=== PATIENT | female | born 1960 | race Caucasian/White ===

== ENCOUNTER 2023-04-14 11:11 | Inpatient (IN) | payer OTHER ==
[~2023-04-14] VITALS: Ht 162.6 cm; Wt 40.8 kg
[2023-04-14] VITALS (10 sets, daily range): BP systolic 81–117; BP diastolic 55–82; TEMP 98.3; O2SAT 73–100
[2023-04-14] MEDS ORDERED: PIPERACILLIN /TAZOBACTAM 3.375 G in IV D5W 50 ML IV ONE (11:30)
[2023-04-14] MEDS ORDERED: VANCOMYCIN 1 GM in IV D5W 250 ML IV ONE (11:30)
[2023-04-14] MEDS ORDERED: IV LR 1000 ML 1,000 ML BAG IV ONE (11:30)
[2023-04-14] MEDS ORDERED: OMEP20CA15 GT (12:05)
[2023-04-14] MEDS ORDERED: POVI3780 TP (12:05)
[2023-04-14] MEDS ORDERED: MULT-213 GT (12:05)
[2023-04-14] MEDS ORDERED: LIDO30AD10 TD (12:05)
[2023-04-14] MEDS ORDERED: MAGN400O6 GT (12:05)
[2023-04-14] MEDS ORDERED: ASPI-1169 GT (12:05)
[2023-04-14] MEDS ORDERED: ZOLP5TAB2 GT (12:05)
[2023-04-14] MEDS ORDERED: GUAI100S9 GT (12:05)
[2023-04-14] MEDS ORDERED: ALBU8.5H8 IH (12:05)
[2023-04-14] MEDS ORDERED: ACET-2605 GT (12:05)
[2023-04-14] MEDS ORDERED: NA P133E RC (12:05)
[2023-04-14] MEDS ORDERED: IPRA12.9 IH (12:05)
[2023-04-14] MEDS ORDERED: CHOL200059 GT (12:05)
[2023-04-14] MEDS ORDERED: ATOR80TA GT (12:05)
[2023-04-14] MEDS ORDERED: ZINC220T3 GT (12:05)
[2023-04-14] MEDS ORDERED: PRUC2TAB GT (12:05)
[2023-04-14] MEDS ORDERED: SIME80TA15 GT (12:05)
[2023-04-14] MEDS ORDERED: MAGN400T26 GT (12:05)
[2023-04-14] MEDS ORDERED: BISA10SU11 RC (12:05)
[2023-04-14] MEDS ORDERED: ACET-3511 GT (12:05)
[2023-04-14] MEDS ORDERED: NUTR150016 PO (12:05)
[2023-04-14] MEDS ORDERED: SENN-261 GT (12:05)
[2023-04-14] MEDS ORDERED: SILD50TA53 GT (12:05)
[2023-04-14] MEDS ORDERED: HYDR200T4 GT (12:05)
[2023-04-14] MEDS ORDERED: POLY17PO4 GT (12:05)
[2023-04-14] MEDS ORDERED: CHLO473M5 MM (12:05)
[2023-04-14] MEDS ORDERED: ONDA4TAB5 GT (12:05)
[2023-04-14] MEDS ORDERED: TRAM50TA2 GT (12:05)
[2023-04-14] MEDS ORDERED: DOCU100T2 GT (12:05)
[2023-04-14] MEDS ORDERED: SODI473S9 TP (12:05)
[2023-04-14 12:12] LABS: APPEARANCE,URINE CLEAR (CLEAR); BILIRUBIN,URINE NEGATIVE (NEGATIVE); BLOOD, URINE TRACE-INTA Ery/uL (NEGATIVE); COLOR,URINE YELLOW (YELLOW); KETONES,URINE TRACE mg/dL (NEGATIVE); LEUKOCYTE ESTERASE ,URINE 1+ (NEGATIVE); NITRITE, URINE NEGATIVE (NEGATIVE); PROTEIN,URINE 1+ mg/dl (NEGATIVE); UGLUCOSE NEGATIVE (NEGATIVE); UROBILINOGEN,URINE 0.2 EU/dL (0.2)
[2023-04-14 12:17] LABS: ADD URINE CULTURE YES; BACTERIA,URINE Rare /HPF (None Seen); RBC,URINE 0-2 /HPF (0-2); SQUAMOUS EPITHELIAL CELL,UR Few /HPF (None Seen)
[2023-04-14 12:36] LABS: BASOPHILS % (AUTO) 0.1 % (0.0-2.0); HEMATOCRIT 22 % (33-45); LYMPHOCYTES # (AUTO) 0.6 K/uL (0.8-4.8); LYMPHOCYTES % (AUTO) 3.4 % (20.0-44.0); MEAN CORPUSCULAR HEMOGLOBIN 30 PG (26.0-33.0); MEAN CORPUSCULAR HGB CONC 31 g/dl (31.0-36.0); MEAN CORPUSCULAR VOLUME 96 fL (82-100); MONOCYTES # (AUTO) 0.9 K/uL (0.1-1.30); MONOCYTES % (AUTO) 5.2 % (2.0-12.0); NEUTROPHILS # (AUTO) 15.6 K/uL (1.8-8.9); NEUTROPHILS % (AUTO) 91.3 % (43.0-81.0); PLATELET COUNT (AUTO) 500 K/uL (150-450); RED BLOOD CELL COUNT(AUTO) 2.27 MIL/uL (4.0-5.2); RED CELL DISTRIBUTION WIDTH 18.9 % (11.5-15.0); WHITE BLOOD COUNT (AUTO) 17.2 K/uL (4.3-11.0)
[2023-04-14 12:38] LABS: HEMOGLOBIN 6.7 g/dL (11.5-14.8)
[2023-04-14 12:44] LABS: CALCIUM, SERUM 8.2 mg/dL (8.5-10.1); CARBON DIOXIDE 20 mmol/L (21-32); CHLORIDE 90 mmol/L (98-107); CREATININE 0.4 mg/dL (0.6-1.3); GLUCOSE 84 mg/dL (74-106); POTASSIUM 4.7 mmol/L (3.5-5.1); SODIUM SERUM 125 mmol/L (136-145); UREA NITROGEN, BLOOD 30 mg/dL (7-18)
[2023-04-14 12:50] LABS: ALANINE AMINOTRANSFERASE 22 U/L (12-78); ALBUMIN 2.2 g/dL (3.4-5.0); ALKALINE PHOSPHATASE 73 U/L (46-116); ASPARTATE AMINOTRANSFERASE 28 U/L (15-37); BILIRUBIN,DIRECT 0.1 mg/dL (0.0-0.2); BILIRUBIN,TOTAL 0.2 mg/dL (0.2-1.0); TOTAL PROTEIN, SERUM 5.4 g/dL (6.4-8.2)
[2023-04-14 12:53] LABS: INR 1.14 (0.91-1.10); PARTIAL THROMBOPLASTIN TIME 25.9 SEC (24.3-34.3); PROTHROMBIN TIME 11.9 SECS (9.2-11.1)
[2023-04-14 13:03] LABS: LACTIC ACID 5.5 mmol/L (0.4-2.0)
[2023-04-14 13:13] LABS: BASOPHILS % (MANUAL) 0 % (0.0-2.0); EOSINOPHILS % (MANUAL) 0 % (0-4); LYMPHOCYTES % (MANUAL) 5 % (16-48); MONOCYTES % (MANUAL) 9 % (0-11.0); NEUTROPHILS % (MANUAL) 86 (42-76); PLATELET ESTIMATE ADEQUATE
[2023-04-14 13:14] LABS: ANISOCYTOSIS 1+
[2023-04-14 13:30] LABS: PEEP,VBG 5 cm H2O; SITE, VBG Right Radial; VBG BASE EXCESS -3.1 mmol/L (-3-3); VBG COHb 0.3 %; VBG OXYGEN SATURATION 54.7 %; VBG PCO2 39.8 mmHg (40-52); VBG PH 7.361 (7.31-7.41); VBG PO2 31.1 mmHg (30-50); VBG TOTAL HEMOGLOBIN 6.4 G/dL (12.0-16.0); VT, VBG 325 mL
[2023-04-14] MEDS ORDERED: IV LR 1000 ML 1,000 ML IV ONE (13:30)
[2023-04-14] MEDS ORDERED: NA PHOS,M-B/NA PHOS,DI-BA 1 EA ENEMA RC PRN (15:30)
[2023-04-14] MEDS ORDERED: ONDANSETRON HCL/PF 4 MG/2 ML VIAL IVP PRN (15:30)
[2023-04-14] MEDS ORDERED: IOHEXOL-300 100 ML VIAL IV ONE (15:48)
[2023-04-14] MEDS ORDERED: IV NS 0.9% 250 ML IV ONE (15:50)
[2023-04-14] MEDS ORDERED: NOREPINEPHRINE 8 MG in IV NS 0.9% 242 ML IV PRN (16:30)
[2023-04-14] MEDS: DOCUSATE SODIUM LIQ 100 MG/10 ML UDC GT SCH (17:00)
[2023-04-14] MEDS: SIMETHICONE 80 MG TAB.CHEW GT SCH ×2 (17:41→21:00)
[2023-04-14] MEDS ORDERED: Medication Not On Formulary EA (Prucalopride Succinate (Motegrity) 2 MG) GT SCH (18:00)
[2023-04-14] MEDS: IV NS 0.9% 1,000 ML IV PRN (18:18)
[2023-04-14 18:41] LABS: ABG BASE EXCESS -2.6 mmol/L; ABG OXYGEN SATURATION 63.8 % (92.0-98.5); ABG PH 7.426 (7.350-7.450); ABG PO2 31.3 mmHg (75.0-100.0); AaDO2 648.7 mmHg; COHb 0.2 % (0.5-1.5); MetHb 0.2 % (0.0-1.5); O2Hb 63.5 % (94.0-97.0); PEEP,BG 5 cm H2O; SITE, ABG Right Radial; VT, ABG 325 mL
[2023-04-14] MEDS: NOREPINEPHRINE 8 MG in IV NS 0.9% 242 ML IV PRN (18:46)
[2023-04-14] MEDS: METOCLOPRAMIDE HCL 10 MG/2 ML VIAL IV SCH ×2 (18:49→23:13)
[2023-04-14 21:13] LABS: ABG BASE EXCESS 1.8 mmol/L; ABG OXYGEN SATURATION 99.4 % (92.0-98.5); ABG PCO2 30.2 mmHg (35.0-45.0); ABG PH 7.522 (7.350-7.450); ABG PO2 538.6 mmHg (75.0-100.0); ABG TOTAL HEMOGLOBIN 10.2 G/dL (12.0-16.0); AaDO2 144.2 mmHg; COHb 0.3 % (0.5-1.5); MetHb 0.3 % (0.0-1.5); O2Hb 98.8 % (94.0-97.0); PEEP,BG 8 cm H2O; SITE, ABG Left Brachial
[2023-04-14] MEDS: ATORVASTATIN 40 MG TABLET GT SCH (21:35)
[2023-04-14] MEDS: CEFEPIME 2 GM in IV D5W 100 ML IV SCH (21:36)
[2023-04-14] MEDS: CHLORHEXIDINE GLUCONATE 15 ML UDC MM SCH (21:36)
[2023-04-14] MEDS: VANCOMYCIN 500 MG in IV D5W 100ml IV SCH (23:13)
[2023-04-15] VITALS (44 sets, daily range): BP systolic 94–126; BP diastolic 61–98; TEMP 96.5–98.2; O2SAT 93–100
[2023-04-15] MEDS: Z GUARD REMEDY 4 OZ OINT TP PRN (02:02)
[2023-04-15 05:46] LABS: BASOPHILS % (AUTO) 0.1 % (0.0-2.0); HEMATOCRIT 26 % (33-45); HEMOGLOBIN 8.7 g/dL (11.5-14.8); LYMPHOCYTES # (AUTO) 0.6 K/uL (0.8-4.8); LYMPHOCYTES % (AUTO) 5.1 % (20.0-44.0); MEAN CORPUSCULAR HEMOGLOBIN 31 PG (26.0-33.0); MEAN CORPUSCULAR HGB CONC 34 g/dl (31.0-36.0); MEAN CORPUSCULAR VOLUME 91 fL (82-100); MONOCYTES # (AUTO) 0.5 K/uL (0.1-1.30); MONOCYTES % (AUTO) 4.2 % (2.0-12.0); NEUTROPHILS % (AUTO) 90.6 % (43.0-81.0); PLATELET COUNT (AUTO) 500 K/uL (150-450); RED BLOOD CELL COUNT(AUTO) 2.83 MIL/uL (4.0-5.2); WHITE BLOOD COUNT (AUTO) 12.1 K/uL (4.3-11.0)
[2023-04-15] MEDS: METOCLOPRAMIDE HCL 10 MG/2 ML VIAL IV SCH ×3 (06:21→18:16)
[2023-04-15] MEDS: CEFEPIME 2 GM in IV D5W 100 ML IV SCH ×3 (06:21→21:00)
[2023-04-15] MEDS: IV NS 0.9% 1,000 ML IV PRN (06:23)
[2023-04-15 06:28] LABS: THYROID STIMULATING HORMONE 2.164 uIU/mL (0.358-3.74)
[2023-04-15 06:39] LABS: CREATININE 0.2 mg/dL (0.6-1.3); MAGNESIUM 1.8 mg/dL (1.8-2.4); PHOSPHORUS 3.6 mg/dL (2.5-4.9); POTASSIUM 3.3 mmol/L (3.5-5.1)
[2023-04-15 08:05] LABS: ABG BASE EXCESS 1.5 mmol/L; ABG OXYGEN SATURATION 98.6 % (92.0-98.5); ABG PCO2 35.4 mmHg (35.0-45.0); ABG PH 7.468 (7.350-7.450); ABG TOTAL HEMOGLOBIN 10.2 G/dL (12.0-16.0); AaDO2 96.5 mmHg; COHb 0.3 % (0.5-1.5); MetHb 0.4 % (0.0-1.5); O2Hb 97.9 % (94.0-97.0); PEEP,BG 5 cm H2O; SITE, ABG Left Brachial; VT, ABG 375 mL
[2023-04-15] MEDS: POTASSIUM CL. PREMIX PERIPHER. 50 ML IV SCH ×4 (08:21→12:28)
[2023-04-15] MEDS: SIMETHICONE 80 MG TAB.CHEW GT SCH ×4 (08:21→21:00)
[2023-04-15] MEDS: POLYETHYLENE GLYCOL 3350 17 GM POWD.PACK GT SCH (08:21)
[2023-04-15] MEDS: MULTIVIT W/MINERALS 1 TAB TABLET GT SCH (08:21)
[2023-04-15] MEDS: HYDROXYCHLOROQUINE 200 MG TABLET GT SCH (08:21)
[2023-04-15] MEDS: CHLORHEXIDINE GLUCONATE 15 ML UDC MM SCH ×2 (08:22→21:00)
[2023-04-15] MEDS: ZINC SULFATE 220 MG CAPSULE GT SCH (08:22)
[2023-04-15] MEDS: CHOLECALCIFEROL 1,000 UNIT TABLET (VIT D3) GT SCH (08:22)
[2023-04-15] MEDS: DOCUSATE SODIUM LIQ 100 MG/10 ML UDC GT SCH ×2 (08:22→17:00)
[2023-04-15] MEDS: PANTOPRAZOLE 40 MG/PACK PACK GT SCH (08:22)
[2023-04-15] MEDS: THERAHONEY GEL 1.5 OZ TUBE TP SCH (09:08)
[2023-04-15] MEDS ORDERED: DIATR MEGLU/DIATRIZOATE SODIUM 30 ML BOTTLE (GASTROGRAPHIN) ONE (09:59)
[2023-04-15] MEDS ORDERED: DIATR MEGLU/DIATRIZOATE SODIUM 120 ML BOTTLE (GASTROGRAPHIN) ONE (09:59)
[2023-04-15] MEDS: NOREPINEPHRINE 8 MG in IV NS 0.9% 242 ML IV PRN (12:32)
[2023-04-15] MEDS: VANCOMYCIN 500 MG in IV D5W 100ml IV SCH ×2 (13:58→23:30)
[2023-04-15] MEDS ORDERED: NOREPINEPHRINE 8 MG in IV NS 0.9% 242 ML IV PRN (19:30)
[2023-04-15] MEDS ORDERED: IV NS 0.9% 250 ML IV ONE ×3 (19:30)
[2023-04-15] MEDS: ZOLPIDEM TARTRATE 5 MG TABLET GT SCH (21:00)
[2023-04-15] MEDS: ATORVASTATIN 40 MG TABLET GT SCH (21:01)
[2023-04-15] MEDS: DAKINS QUARTER STRENGTH (0.125%) 480 ML BOTTLE TOP SCH (22:00)
[2023-04-15 22:09] LABS: HIV-1 p24 ANTIGEN NON REACTIVE (NONREACTIVE); HIV-1/2 ANTIBODY NON REACTIVE (NONREACTIVE)
[2023-04-15] MEDS: ACETAMINOPHEN 650 MG/20.3 ML UDC GT PRN (23:30)
[2023-04-16] VITALS (20 sets, daily range): BP systolic 88–117; BP diastolic 59–80; TEMP 97.4–97.9; O2SAT 96–100
[2023-04-16] MEDS: IV NS 0.9% 1,000 ML IV PRN ×2 (02:50→19:28)
[2023-04-16 04:34] LABS: BASOPHILS % (AUTO) 0.2 % (0.0-2.0); HEMATOCRIT 24 % (33-45); HEMOGLOBIN 8.1 g/dL (11.5-14.8); LYMPHOCYTES # (AUTO) 0.7 K/uL (0.8-4.8); LYMPHOCYTES % (AUTO) 9.4 % (20.0-44.0); MEAN CORPUSCULAR HEMOGLOBIN 31 PG (26.0-33.0); MEAN CORPUSCULAR HGB CONC 33 g/dl (31.0-36.0); MEAN CORPUSCULAR VOLUME 91 fL (82-100); MONOCYTES # (AUTO) 0.7 K/uL (0.1-1.30); MONOCYTES % (AUTO) 9.3 % (2.0-12.0); NEUTROPHILS # (AUTO) 5.9 K/uL (1.8-8.9); NEUTROPHILS % (AUTO) 81.1 % (43.0-81.0); PLATELET COUNT (AUTO) 384 K/uL (150-450); RED BLOOD CELL COUNT(AUTO) 2.65 MIL/uL (4.0-5.2); RED CELL DISTRIBUTION WIDTH 16.4 % (11.5-15.0); WHITE BLOOD COUNT (AUTO) 7.3 K/uL (4.3-11.0)
[2023-04-16 04:50] LABS: CALCIUM, SERUM 7.9 mg/dL (8.5-10.1); CREATININE 0.2 mg/dL (0.6-1.3); POTASSIUM 3.4 mmol/L (3.5-5.1)
[2023-04-16] MEDS: METOCLOPRAMIDE HCL 10 MG/2 ML VIAL IV SCH ×4 (05:00→17:03)
[2023-04-16] MEDS: CEFEPIME 2 GM in IV D5W 100 ML IV SCH ×3 (05:00→21:46)
[2023-04-16 05:04] LABS: BAND % (MANUAL) 1 % (0.0-5.0); LYMPHOCYTES % (MANUAL) 4 % (16-48); MONOCYTES % (MANUAL) 4 % (0-11.0); NEUTROPHILS % (MANUAL) 91 (42-76)
[2023-04-16 05:05] LABS: ANISOCYTOSIS 1+; OVALOCYTES 1+; PLATELET ESTIMATE ADEQUATE
[2023-04-16] MEDS: PANTOPRAZOLE 40 MG/PACK PACK GT SCH (07:58)
[2023-04-16] MEDS: SIMETHICONE 80 MG TAB.CHEW GT SCH ×4 (08:08→21:46)
[2023-04-16] MEDS: OSMOLITE 1.2 CAL 1,000 ML LIQUID GT PRN (08:13)
[2023-04-16] MEDS: POLYETHYLENE GLYCOL 3350 17 GM POWD.PACK GT SCH (08:13)
[2023-04-16] MEDS: DOCUSATE SODIUM LIQ 100 MG/10 ML UDC GT SCH ×2 (08:13→17:00)
[2023-04-16] MEDS: HYDROXYCHLOROQUINE 200 MG TABLET GT SCH (08:21)
[2023-04-16] MEDS: ZINC SULFATE 220 MG CAPSULE GT SCH (08:21)
[2023-04-16] MEDS: MULTIVIT W/MINERALS 1 TAB TABLET GT SCH (08:21)
[2023-04-16] MEDS: CHOLECALCIFEROL 1,000 UNIT TABLET (VIT D3) GT SCH (08:21)
[2023-04-16] MEDS: THERAHONEY GEL 1.5 OZ TUBE TP SCH (08:22)
[2023-04-16] MEDS: DAKINS QUARTER STRENGTH (0.125%) 480 ML BOTTLE TOP SCH (08:22)
[2023-04-16] MEDS ORDERED: POTASSIUM CHLORIDE 20 MEQ POWDER PACKET GT ONE (09:00)
[2023-04-16] MEDS: CHLORHEXIDINE GLUCONATE 15 ML UDC MM SCH ×2 (09:00→21:46)
[2023-04-16] MEDS: VANCOMYCIN 500 MG in IV D5W 100ml IV SCH (12:50)
[2023-04-16] MEDS ORDERED: SILVER NITRATE APPLICATOR 1 EA BOX TP SCH (14:30)
[2023-04-16] MEDS ORDERED: LIDOCAINE 1%-EPI 1:100,000 20 ML VIAL TP ONE (14:30)
[2023-04-16] MEDS ORDERED: SIMETHICONE 80 MG TAB.CHEW ONE (21:33)
[2023-04-16] MEDS: ATORVASTATIN 40 MG TABLET GT SCH (21:45)
[2023-04-17] VITALS: BP 106/74; TEMP 98; O2SAT 96
[2023-04-17] MEDS: VANCOMYCIN 500 MG in IV D5W 100ml IV SCH ×3 (00:28→23:30)
[2023-04-17] MEDS: METOCLOPRAMIDE HCL 10 MG/2 ML VIAL IV SCH ×4 (00:28→17:13)
[2023-04-17 04:00] VITALS: BP 99/63; TEMP 97.8; O2SAT 96
[2023-04-17] MEDS: CEFEPIME 2 GM in IV D5W 100 ML IV SCH ×3 (05:27→21:45)
[2023-04-17] MEDS: ACETAMINOPHEN 650 MG/20.3 ML UDC GT PRN ×3 (05:30→21:45)
[2023-04-17 08:00] VITALS: BP 130/85; TEMP 97; O2SAT 97
[2023-04-17] MEDS: PANTOPRAZOLE 40 MG/PACK PACK GT SCH (08:43)
[2023-04-17] MEDS: DOCUSATE SODIUM LIQ 100 MG/10 ML UDC GT SCH ×2 (09:00→16:50)
[2023-04-17] MEDS: POLYETHYLENE GLYCOL 3350 17 GM POWD.PACK GT SCH (09:00)
[2023-04-17 09:58] LABS: BASOPHILS % (AUTO) 0.1 % (0.0-2.0); EOSINOPHILS % (AUTO) 0.1 % (0.0-6.0); HEMATOCRIT 26 % (33-45); HEMOGLOBIN 8.5 g/dL (11.5-14.8); LYMPHOCYTES # (AUTO) 0.8 K/uL (0.8-4.8); LYMPHOCYTES % (AUTO) 7.9 % (20.0-44.0); MEAN CORPUSCULAR HEMOGLOBIN 31 PG (26.0-33.0); MEAN CORPUSCULAR HGB CONC 33 g/dl (31.0-36.0); MEAN CORPUSCULAR VOLUME 93 fL (82-100); MONOCYTES # (AUTO) 0.6 K/uL (0.1-1.30); MONOCYTES % (AUTO) 6.7 % (2.0-12.0); NEUTROPHILS # (AUTO) 8.2 K/uL (1.8-8.9); NEUTROPHILS % (AUTO) 85.2 % (43.0-81.0); PLATELET COUNT (AUTO) 365 K/uL (150-450); WHITE BLOOD COUNT (AUTO) 9.6 K/uL (4.3-11.0)
[2023-04-17] MEDS: CHLORHEXIDINE GLUCONATE 15 ML UDC MM SCH ×2 (10:02→21:45)
[2023-04-17] MEDS: MULTIVIT W/MINERALS 1 TAB TABLET GT SCH (10:02)
[2023-04-17] MEDS: ZINC SULFATE 220 MG CAPSULE GT SCH (10:02)
[2023-04-17] MEDS: CHOLECALCIFEROL 1,000 UNIT TABLET (VIT D3) GT SCH (10:02)
[2023-04-17] MEDS: HYDROXYCHLOROQUINE 200 MG TABLET GT SCH (10:03)
[2023-04-17 10:26] LABS: CALCIUM, SERUM 7.4 mg/dL (8.5-10.1); CREATININE 0.3 mg/dL (0.6-1.3); MAGNESIUM 1.4 mg/dL (1.8-2.4); PHOSPHORUS 2.9 mg/dL (2.5-4.9)
[2023-04-17] MEDS: SIMETHICONE 80 MG TAB.CHEW GT SCH ×4 (10:46→21:44)
[2023-04-17] MEDS: MUPIROCIN OINT 2% 22 GM TUBE NS SCH ×2 (10:47→21:46)
[2023-04-17] MEDS: DAKINS QUARTER STRENGTH (0.125%) 480 ML BOTTLE TOP SCH (11:07)
[2023-04-17] MEDS: THERAHONEY GEL 1.5 OZ TUBE TP SCH (11:07)
[2023-04-17] MEDS: Z GUARD REMEDY 4 OZ OINT TP PRN (11:07)
[2023-04-17 12:00] VITALS: BP 100/62; TEMP 97.1; O2SAT 100
[2023-04-17 16:00] VITALS: BP 121/85; TEMP 98.7; O2SAT 100
[2023-04-17] MEDS: IV NS 0.9% 1,000 ML IV PRN (17:07)
[2023-04-17 20:00] VITALS: BP 94/64; TEMP 98.2; O2SAT 100
[2023-04-17] MEDS: ATORVASTATIN 40 MG TABLET GT SCH (21:44)
[2023-04-17] MEDS: ZOLPIDEM TARTRATE 5 MG TABLET GT SCH (22:10)
[2023-04-18] VITALS: BP 101/75; TEMP 98; O2SAT 99
[2023-04-18] MEDS: METOCLOPRAMIDE HCL 10 MG/2 ML VIAL IV SCH ×5 (00:37→23:46)
[2023-04-18 04:00] VITALS: BP 99/81; TEMP 98.1; O2SAT 95
[2023-04-18] MEDS: CEFEPIME 2 GM in IV D5W 100 ML IV SCH ×2 (04:19→16:17)
[2023-04-18] MEDS: ACETAMINOPHEN 650 MG/20.3 ML UDC GT PRN ×2 (04:20→23:46)
[2023-04-18] MEDS: OSMOLITE 1.2 CAL 1,000 ML LIQUID GT PRN (06:30)
[2023-04-18] MEDS: PANTOPRAZOLE 40 MG/PACK PACK GT SCH (07:40)
[2023-04-18 07:59] LABS: CALCIUM, SERUM 7.2 mg/dL (8.5-10.1); CREATININE 0.3 mg/dL (0.6-1.3); POTASSIUM 3.4 mmol/L (3.5-5.1)
[2023-04-18 08:00] VITALS: BP 113/72; TEMP 98.4; O2SAT 95
[2023-04-18 08:04] LABS: BASOPHILS % (AUTO) 0.4 % (0.0-2.0); EOSINOPHILS % (AUTO) 0.1 % (0.0-6.0); HEMATOCRIT 26 % (33-45); HEMOGLOBIN 8.5 g/dL (11.5-14.8); LYMPHOCYTES # (AUTO) 0.8 K/uL (0.8-4.8); LYMPHOCYTES % (AUTO) 11.7 % (20.0-44.0); MEAN CORPUSCULAR HEMOGLOBIN 31 PG (26.0-33.0); MEAN CORPUSCULAR HGB CONC 33 g/dl (31.0-36.0); MEAN CORPUSCULAR VOLUME 93 fL (82-100); MONOCYTES # (AUTO) 0.6 K/uL (0.1-1.30); MONOCYTES % (AUTO) 9.1 % (2.0-12.0); NEUTROPHILS # (AUTO) 5.6 K/uL (1.8-8.9); NEUTROPHILS % (AUTO) 78.7 % (43.0-81.0); PLATELET COUNT (AUTO) 349 K/uL (150-450); RED BLOOD CELL COUNT(AUTO) 2.77 MIL/uL (4.0-5.2); RED CELL DISTRIBUTION WIDTH 15.7 % (11.5-15.0); WHITE BLOOD COUNT (AUTO) 7.1 K/uL (4.3-11.0)
[2023-04-18] MEDS: DOCUSATE SODIUM LIQ 100 MG/10 ML UDC GT SCH ×2 (08:22→16:17)
[2023-04-18] MEDS: CHLORHEXIDINE GLUCONATE 15 ML UDC MM SCH ×2 (08:22→21:16)
[2023-04-18] MEDS: ZINC SULFATE 220 MG CAPSULE GT SCH (08:23)
[2023-04-18] MEDS: POLYETHYLENE GLYCOL 3350 17 GM POWD.PACK GT SCH (08:23)
[2023-04-18] MEDS: CHOLECALCIFEROL 1,000 UNIT TABLET (VIT D3) GT SCH (08:23)
[2023-04-18] MEDS: MULTIVIT W/MINERALS 1 TAB TABLET GT SCH (08:23)
[2023-04-18] MEDS: SIMETHICONE 80 MG TAB.CHEW GT SCH ×4 (08:26→21:17)
[2023-04-18] MEDS: HYDROXYCHLOROQUINE 200 MG TABLET GT SCH (08:26)
[2023-04-18] MEDS: THERAHONEY GEL 1.5 OZ TUBE TP SCH (08:33)
[2023-04-18] MEDS: DAKINS QUARTER STRENGTH (0.125%) 480 ML BOTTLE TOP SCH (08:33)
[2023-04-18] MEDS: MUPIROCIN OINT 2% 22 GM TUBE NS SCH ×2 (08:35→21:57)
[2023-04-18] MEDS: IV NS 0.9% 1,000 ML IV PRN (09:45)
[2023-04-18] MEDS: VANCOMYCIN 500 MG in IV D5W 100ml IV SCH (09:55)
[2023-04-18] MEDS ORDERED: POTASSIUM CHLORIDE 20 MEQ POWDER PACKET GT ONE (11:00)
[2023-04-18 12:00] VITALS: BP 109/65; TEMP 98.3; O2SAT 95
[2023-04-18 16:00] VITALS: BP 108/68; TEMP 98.1; O2SAT 95
[2023-04-18 20:00] VITALS: BP 103/65; TEMP 97.8; O2SAT 95
[2023-04-18] MEDS: ATORVASTATIN 40 MG TABLET GT SCH (21:16)
[2023-04-18] MEDS: ZOLPIDEM TARTRATE 5 MG TABLET GT SCH (23:47)
[2023-04-19] VITALS: BP 123/73; TEMP 97.7; O2SAT 98
[2023-04-19] MEDS: IV NS 0.9% 1,000 ML IV PRN ×2 (02:05→04:51)
[2023-04-19 03:30] VITALS: BP 100/48; TEMP 97.6; O2SAT 94
[2023-04-19] MEDS: OSMOLITE 1.2 CAL 1,000 ML LIQUID GT PRN (04:42)
[2023-04-19] MEDS: CEFEPIME 2 GM in IV D5W 100 ML IV SCH ×3 (04:57→21:01)
[2023-04-19] MEDS: VANCOMYCIN 500 MG in IV D5W 100ml IV SCH ×2 (05:04→23:03)
[2023-04-19] MEDS: METOCLOPRAMIDE HCL 10 MG/2 ML VIAL IV SCH ×4 (06:29→23:06)
[2023-04-19 08:04] LABS: CALCIUM, SERUM 7.2 mg/dL (8.5-10.1); CREATININE 0.2 mg/dL (0.6-1.3); MAGNESIUM 1.7 mg/dL (1.8-2.4); PHOSPHORUS 2.1 mg/dL (2.5-4.9); POTASSIUM 3.3 mmol/L (3.5-5.1)
[2023-04-19 08:07] VITALS: BP 124/75; TEMP 97.5; O2SAT 100
[2023-04-19] MEDS: ZINC SULFATE 220 MG CAPSULE GT SCH (08:15)
[2023-04-19] MEDS: POLYETHYLENE GLYCOL 3350 17 GM POWD.PACK GT SCH (08:15)
[2023-04-19] MEDS: PANTOPRAZOLE 40 MG/PACK PACK GT SCH (08:15)
[2023-04-19] MEDS: CHOLECALCIFEROL 1,000 UNIT TABLET (VIT D3) GT SCH (08:15)
[2023-04-19] MEDS: DOCUSATE SODIUM LIQ 100 MG/10 ML UDC GT SCH ×2 (08:15→16:39)
[2023-04-19] MEDS: MULTIVIT W/MINERALS 1 TAB TABLET GT SCH (08:15)
[2023-04-19] MEDS: HYDROXYCHLOROQUINE 200 MG TABLET GT SCH (08:15)
[2023-04-19] MEDS: CHLORHEXIDINE GLUCONATE 15 ML UDC MM SCH ×2 (08:15→21:02)
[2023-04-19] MEDS: POTASSIUM PHOSPHATE MM 5 MMOL in IV NS 0.9% 100 ML IV SCH ×2 (09:10→11:06)
[2023-04-19] MEDS: DAKINS QUARTER STRENGTH (0.125%) 480 ML BOTTLE TOP SCH (09:22)
[2023-04-19] MEDS: THERAHONEY GEL 1.5 OZ TUBE TP SCH (09:22)
[2023-04-19] MEDS: MUPIROCIN OINT 2% 22 GM TUBE NS SCH ×2 (09:23→21:03)
[2023-04-19 09:27] LABS: THYROID STIMULATING HORMONE 7.181 uIU/mL (0.358-3.74); URIC ACID 1.6 mg/dL (2.6-7.2)
[2023-04-19] MEDS: SIMETHICONE 80 MG TAB.CHEW GT SCH ×4 (09:41→21:00)
[2023-04-19] MEDS ORDERED: MAGNESIUM OXIDE 400 MG TABLET GT ONE (10:00)
[2023-04-19] MEDS ORDERED: POTASSIUM CHLORIDE 20 MEQ POWDER PACKET NG SCH (10:30)
[2023-04-19 12:00] VITALS: BP 113/69; TEMP 97.7; O2SAT 99
[2023-04-19] MEDS ORDERED: MUPIROCIN OINT 2% 22 GM TUBE NS SCH (14:30)
[2023-04-19] MEDS: METRONIDAZOLE 500 MG TABLET PO SCH ×2 (15:16→21:00)
[2023-04-19 15:59] VITALS: BP 106/68; TEMP 97.5; O2SAT 100
[2023-04-19] MEDS ORDERED: NEUTRA PHOS 1 POWD.PACKET NG ONE (16:00)
[2023-04-19 20:00] VITALS: BP 93/64; TEMP 98.4; O2SAT 94
[2023-04-19] MEDS ORDERED: Magnesium 1GM/D5W 100ML PREMIX 100 ML IV SCH (20:00)
[2023-04-19] MEDS: ATORVASTATIN 40 MG TABLET GT SCH (21:50)
[2023-04-20] VITALS: BP 103/67; TEMP 98.1; O2SAT 94
[2023-04-20 04:00] VITALS: BP 116/65; TEMP 98; O2SAT 98
[2023-04-20] MEDS: METRONIDAZOLE 500 MG TABLET PO SCH ×3 (05:00→21:23)
[2023-04-20] MEDS: CEFEPIME 2 GM in IV D5W 100 ML IV SCH ×3 (05:18→21:23)
[2023-04-20] MEDS: METOCLOPRAMIDE HCL 10 MG/2 ML VIAL IV SCH ×4 (05:18→23:27)
[2023-04-20 05:57] LABS: BASOPHILS % (AUTO) 0.1 % (0.0-2.0); EOSINOPHILS % (AUTO) 0.1 % (0.0-6.0); HEMATOCRIT 29 % (33-45); HEMOGLOBIN 9.5 g/dL (11.5-14.8); MEAN CORPUSCULAR HEMOGLOBIN 31 PG (26.0-33.0); MEAN CORPUSCULAR HGB CONC 34 g/dl (31.0-36.0); MEAN CORPUSCULAR VOLUME 91 fL (82-100); MONOCYTES # (AUTO) 0.6 K/uL (0.1-1.30); MONOCYTES % (AUTO) 6.5 % (2.0-12.0); NEUTROPHILS # (AUTO) 8.1 K/uL (1.8-8.9); NEUTROPHILS % (AUTO) 83.3 % (43.0-81.0); PLATELET COUNT (AUTO) 280 K/uL (150-450); RED BLOOD CELL COUNT(AUTO) 3.13 MIL/uL (4.0-5.2); RED CELL DISTRIBUTION WIDTH 15.3 % (11.5-15.0); WHITE BLOOD COUNT (AUTO) 9.7 K/uL (4.3-11.0)
[2023-04-20 06:15] LABS: CALCIUM, SERUM 7.4 mg/dL (8.5-10.1); CREATININE 0.3 mg/dL (0.6-1.3); POTASSIUM 3.7 mmol/L (3.5-5.1)
[2023-04-20 08:00] VITALS: BP 94/61; TEMP 97.9; O2SAT 100
[2023-04-20 08:36] LABS: MAGNESIUM 1.5 mg/dL (1.8-2.4); PHOSPHORUS 2.8 mg/dL (2.5-4.9)
[2023-04-20] MEDS: DOCUSATE SODIUM LIQ 100 MG/10 ML UDC GT SCH ×2 (08:56→17:10)
[2023-04-20] MEDS: PANTOPRAZOLE 40 MG/PACK PACK GT SCH (08:56)
[2023-04-20] MEDS: HYDROXYCHLOROQUINE 200 MG TABLET GT SCH (08:57)
[2023-04-20] MEDS: POLYETHYLENE GLYCOL 3350 17 GM POWD.PACK GT SCH (08:57)
[2023-04-20] MEDS: ZINC SULFATE 220 MG CAPSULE GT SCH (08:57)
[2023-04-20] MEDS: CHOLECALCIFEROL 1,000 UNIT TABLET (VIT D3) GT SCH (09:02)
[2023-04-20] MEDS: MULTIVIT W/MINERALS 1 TAB TABLET GT SCH (09:02)
[2023-04-20] MEDS: CHLORHEXIDINE GLUCONATE 15 ML UDC MM SCH ×2 (09:03→21:23)
[2023-04-20] MEDS: SIMETHICONE 80 MG TAB.CHEW GT SCH ×4 (09:05→21:23)
[2023-04-20] MEDS: DAKINS QUARTER STRENGTH (0.125%) 480 ML BOTTLE TOP SCH (09:56)
[2023-04-20] MEDS: THERAHONEY GEL 1.5 OZ TUBE TP SCH (09:56)
[2023-04-20] MEDS: Z GUARD REMEDY 4 OZ OINT TP PRN (09:56)
[2023-04-20] MEDS: MUPIROCIN OINT 2% 22 GM TUBE NS SCH ×2 (09:58→21:24)
[2023-04-20] MEDS ORDERED: MAGNESIUM OXIDE 400 MG TABLET GT ONE (10:00)
[2023-04-20 11:54] VITALS: BP 102/71; TEMP 98.2; O2SAT 99
[2023-04-20 16:10] VITALS: BP 89/59; TEMP 98.6; O2SAT 99
[2023-04-20] MEDS: VANCOMYCIN 500 MG in IV D5W 100ml IV SCH (17:10)
[2023-04-20] MEDS: ATORVASTATIN 40 MG TABLET GT SCH (21:23)
[2023-04-20] MEDS: OSMOLITE 1.2 CAL 1,000 ML LIQUID GT PRN (23:31)
[2023-04-21] MEDS: METRONIDAZOLE 500 MG TABLET PO SCH ×3 (05:12→20:07)
[2023-04-21] MEDS: METOCLOPRAMIDE HCL 10 MG/2 ML VIAL IV SCH ×4 (05:12→23:32)
[2023-04-21] MEDS: CEFEPIME 2 GM in IV D5W 100 ML IV SCH ×3 (05:12→20:08)
[2023-04-21 05:56] LABS: CALCIUM, SERUM 7.6 mg/dL (8.5-10.1); CREATININE 0.2 mg/dL (0.6-1.3); MAGNESIUM 1.6 mg/dL (1.8-2.4); PHOSPHORUS 2.6 mg/dL (2.5-4.9)
[2023-04-21] MEDS: PANTOPRAZOLE 40 MG/PACK PACK GT SCH (07:53)
[2023-04-21 08:00] VITALS: BP 105/75; TEMP 94.3; O2SAT 100
[2023-04-21] MEDS ORDERED: MAGNESIUM OXIDE 400 MG TABLET PO ONE (09:00)
[2023-04-21] MEDS: POLYETHYLENE GLYCOL 3350 17 GM POWD.PACK GT SCH (09:00)
[2023-04-21] MEDS: MULTIVIT W/MINERALS 1 TAB TABLET GT SCH (09:07)
[2023-04-21] MEDS: CHOLECALCIFEROL 1,000 UNIT TABLET (VIT D3) GT SCH (09:08)
[2023-04-21] MEDS: HYDROXYCHLOROQUINE 200 MG TABLET GT SCH (09:08)
[2023-04-21] MEDS: CHLORHEXIDINE GLUCONATE 15 ML UDC MM SCH ×2 (09:08→20:08)
[2023-04-21] MEDS: ZINC SULFATE 220 MG CAPSULE GT SCH (09:08)
[2023-04-21] MEDS: DOCUSATE SODIUM LIQ 100 MG/10 ML UDC GT SCH ×2 (09:09→17:22)
[2023-04-21] MEDS: THERAHONEY GEL 1.5 OZ TUBE TP SCH (09:11)
[2023-04-21] MEDS: DAKINS QUARTER STRENGTH (0.125%) 480 ML BOTTLE TOP SCH (09:11)
[2023-04-21] MEDS: SIMETHICONE 80 MG TAB.CHEW GT SCH ×4 (09:16→20:07)
[2023-04-21] MEDS: MUPIROCIN OINT 2% 22 GM TUBE NS SCH ×2 (09:17→20:15)
[2023-04-21 09:25] LABS: BASOPHILS % (AUTO) 0.2 % (0.0-2.0); EOSINOPHILS % (AUTO) 0.2 % (0.0-6.0); HEMATOCRIT 28 % (33-45); HEMOGLOBIN 9.3 g/dL (11.5-14.8); LYMPHOCYTES # (AUTO) 1.1 K/uL (0.8-4.8); LYMPHOCYTES % (AUTO) 10.1 % (20.0-44.0); MEAN CORPUSCULAR HEMOGLOBIN 30 PG (26.0-33.0); MEAN CORPUSCULAR HGB CONC 33 g/dl (31.0-36.0); MEAN CORPUSCULAR VOLUME 92 fL (82-100); MONOCYTES # (AUTO) 0.6 K/uL (0.1-1.30); MONOCYTES % (AUTO) 5.3 % (2.0-12.0); NEUTROPHILS # (AUTO) 9.4 K/uL (1.8-8.9); NEUTROPHILS % (AUTO) 84.2 % (43.0-81.0); PLATELET COUNT (AUTO) 288 K/uL (150-450); RED BLOOD CELL COUNT(AUTO) 3.09 MIL/uL (4.0-5.2); RED CELL DISTRIBUTION WIDTH 15.7 % (11.5-15.0); WHITE BLOOD COUNT (AUTO) 11.2 K/uL (4.3-11.0)
[2023-04-21] MEDS: VANCOMYCIN 500 MG in IV D5W 100ml IV SCH (11:25)
[2023-04-21] MEDS ORDERED: OSMOLITE 1.2 CAL 1,000 ML LIQUID GT PRN (14:30)
[2023-04-21 16:00] VITALS: BP 109/68; TEMP 98.2; O2SAT 97
[2023-04-21] MEDS: PROSOURCE / PROSTAT (PYXIS) 30 ML UDC GT SCH (17:21)
[2023-04-21] MEDS: ARGININE/GLUTAMINE/CALCIUM BMB 1 EACH POWD.PACK GT SCH (17:21)
[2023-04-21 20:00] VITALS: BP 97/62
[2023-04-21] MEDS: ATORVASTATIN 40 MG TABLET GT SCH (21:02)
[2023-04-22] VITALS: BP 91/67; TEMP 97.7; TEMP 97.8; O2SAT 100
[2023-04-22 04:00] VITALS: BP 91/66; TEMP 97.5; O2SAT 99
[2023-04-22] MEDS: CEFEPIME 2 GM in IV D5W 100 ML IV SCH (04:02)
[2023-04-22] MEDS: METRONIDAZOLE 500 MG TABLET PO SCH (04:07)
[2023-04-22 04:24] LABS: BASOPHILS % (AUTO) 0.3 % (0.0-2.0); EOSINOPHILS % (AUTO) 0.3 % (0.0-6.0); HEMATOCRIT 26 % (33-45); HEMOGLOBIN 8.5 g/dL (11.5-14.8); LYMPHOCYTES # (AUTO) 1.1 K/uL (0.8-4.8); LYMPHOCYTES % (AUTO) 11.1 % (20.0-44.0); MEAN CORPUSCULAR HEMOGLOBIN 30 PG (26.0-33.0); MEAN CORPUSCULAR HGB CONC 33 g/dl (31.0-36.0); MEAN CORPUSCULAR VOLUME 91 fL (82-100); MONOCYTES # (AUTO) 0.9 K/uL (0.1-1.30); MONOCYTES % (AUTO) 9.2 % (2.0-12.0); NEUTROPHILS # (AUTO) 7.6 K/uL (1.8-8.9); NEUTROPHILS % (AUTO) 79.1 % (43.0-81.0); PLATELET COUNT (AUTO) 266 K/uL (150-450); RED BLOOD CELL COUNT(AUTO) 2.84 MIL/uL (4.0-5.2); RED CELL DISTRIBUTION WIDTH 15.5 % (11.5-15.0); WHITE BLOOD COUNT (AUTO) 9.6 K/uL (4.3-11.0)
[2023-04-22 04:46] LABS: ALBUMIN 1.9 g/dL (3.4-5.0); BILIRUBIN,TOTAL 0.2 mg/dL (0.2-1.0); CALCIUM, SERUM 7.9 mg/dL (8.5-10.1); CREATININE 0.3 mg/dL (0.6-1.3); MAGNESIUM 1.6 mg/dL (1.8-2.4); PHOSPHORUS 1.4 mg/dL (2.5-4.9); POTASSIUM 3.9 mmol/L (3.5-5.1); TOTAL PROTEIN, SERUM 5.2 g/dL (6.4-8.2)
[2023-04-22] MEDS: VANCOMYCIN 500 MG in IV D5W 100ml IV SCH (04:54)
[2023-04-22] MEDS: METOCLOPRAMIDE HCL 10 MG/2 ML VIAL IV SCH ×2 (05:00→12:33)
[2023-04-22 07:30] VITALS: BP 114/81; TEMP 97.7; O2SAT 95
[2023-04-22] MEDS: PANTOPRAZOLE 40 MG/PACK PACK GT SCH (08:49)
[2023-04-22] MEDS: CHLORHEXIDINE GLUCONATE 15 ML UDC MM SCH (09:00)
[2023-04-22] MEDS: CHOLECALCIFEROL 1,000 UNIT TABLET (VIT D3) GT SCH (09:00)
[2023-04-22] MEDS: SIMETHICONE 80 MG TAB.CHEW GT SCH ×2 (09:00→12:33)
[2023-04-22] MEDS: POLYETHYLENE GLYCOL 3350 17 GM POWD.PACK GT SCH (09:00)
[2023-04-22] MEDS: PROSOURCE / PROSTAT (PYXIS) 30 ML UDC GT SCH (09:00)
[2023-04-22] MEDS: DOCUSATE SODIUM LIQ 100 MG/10 ML UDC GT SCH (09:00)
[2023-04-22] MEDS: MULTIVIT W/MINERALS 1 TAB TABLET GT SCH (09:00)
[2023-04-22] MEDS: ZINC SULFATE 220 MG CAPSULE GT SCH (09:03)
[2023-04-22] MEDS: HYDROXYCHLOROQUINE 200 MG TABLET GT SCH (09:03)
[2023-04-22] MEDS: ARGININE/GLUTAMINE/CALCIUM BMB 1 EACH POWD.PACK GT SCH (09:15)
[2023-04-22] MEDS: MUPIROCIN OINT 2% 22 GM TUBE NS SCH (09:16)
[2023-04-22] MEDS: THERAHONEY GEL 1.5 OZ TUBE TP SCH (09:16)
[2023-04-22] MEDS: DAKINS QUARTER STRENGTH (0.125%) 480 ML BOTTLE TOP SCH (09:16)
[2023-04-22] MEDS ORDERED: MERO1VIA23 IV (09:39)
[2023-04-22] MEDS ORDERED: VANC500F2 IV (09:39)
[2023-04-22] MEDS ORDERED: MAGNESIUM OXIDE 400 MG TABLET GT ONE (10:00)
[2023-04-22] MEDS: MEROPENEM 1 G in IV NS 0.9% 100 ML IV SCH ×2 (10:07→14:14)
[2023-04-22 12:00] VITALS: BP 115/94; TEMP 97.5; O2SAT 100
[2023-04-22] MEDS ORDERED: NEUTRA PHOS 1 POWD.PACKET NG ONE (16:00)
[2023-04-22] MEDS ORDERED: VANCOMYCIN 500 MG in IV D5W 100ml IV SCH (17:00)
== END 2023-04-22 16:09 | DRG 981 ==
LOC: ER 11:19 → ICU 15:02 → TELE1 04-16 17:07 → TELE 04-19 03:28
PROVIDERS: ADMIT Nurse Practitioner Family; ATTEND Internal Medicine
PROC: 5A1955Z Respiratory Ventilation, Greater than 96 Consecutive Hours (ICD-10-PCS; principal; 2023-04-14)
PROC: 30233N1 Transfusion of Nonautologous Red Blood Cells into Peripheral Vein, Percutaneous Approach (ICD-10-PCS; 2023-04-14)
PROC: 05H533Z Insertion of Infusion Device into Right Subclavian Vein, Percutaneous Approach (ICD-10-PCS; 2023-04-14)
PROC: B546ZZA Ultrasonography of Right Subclavian Vein, Guidance (ICD-10-PCS; 2023-04-14)
PROC: 0QB10ZZ Excision of Sacrum, Open Approach (ICD-10-PCS; 2023-04-17)
DX: K62.3 Rectal prolapse (principal); I21.A1 Myocardial infarction type 2; L89.154 Pressure ulcer of sacral region, stage 4; J96.21 Acute and chronic respiratory failure with hypoxia; N17.0 Acute kidney failure with tubular necrosis; R57.1 Hypovolemic shock; R57.8 Other shock; E22.2 Syndrome of inappropriate secretion of antidiuretic hormone; E44.0 Moderate protein-calorie malnutrition; Z99.11 Dependence on respirator [ventilator] status; I73.01 Raynaud's syndrome with gangrene; J98.19 Other pulmonary collapse; N39.0 Urinary tract infection, site not specified; E87.20 Acidosis, unspecified; M86.9 Osteomyelitis, unspecified; R64 Cachexia; I70.268 Atherosclerosis of native arteries of extremities with gangrene, other extremity; Z93.0 Tracheostomy status; Z93.1 Gastrostomy status; R13.10 Dysphagia, unspecified; M34.9 Systemic sclerosis, unspecified; M32.9 Systemic lupus erythematosus, unspecified; I10 Essential (primary) hypertension; E78.5 Hyperlipidemia, unspecified; I25.10 Atherosclerotic heart disease of native coronary artery without angina pectoris; J98.4 Other disorders of lung; K21.9 Gastro-esophageal reflux disease without esophagitis; Z87.19 Personal history of other diseases of the digestive system; Z79.51 Long term (current) use of inhaled steroids; Z79.899 Other long term (current) drug therapy; Z79.82 Long term (current) use of aspirin; D75.839 Thrombocytosis, unspecified; B96.89 Other specified bacterial agents as the cause of diseases classified elsewhere; D64.9 Anemia, unspecified; B95.62 Methicillin resistant Staphylococcus aureus infection as the cause of diseases classified elsewhere; G89.4 Chronic pain syndrome; I25.2 Old myocardial infarction; K52.9 Noninfective gastroenteritis and colitis, unspecified; L97.519 Non-pressure chronic ulcer of other part of right foot with unspecified severity; L97.529 Non-pressure chronic ulcer of other part of left foot with unspecified severity; G47.00 Insomnia, unspecified; E88.09 Other disorders of plasma-protein metabolism, not elsewhere classified; E87.6 Hypokalemia; Z20.822 Contact with and (suspected) exposure to COVID-19; E86.1 Hypovolemia; Z74.09 Other reduced mobility; T17.990A Other foreign object in respiratory tract, part unspecified in causing asphyxiation, initial encounter
CPT/HCPCS: 31720; 36415; 36600; 71045-TC; 74250-TC; 80048-TC; 80053-TC; 80061-TC; 80076-TC; 80202-TC; 81001; 82533; 82607-TC; 82728-TC; 82803-TC; 83540-TC; 83605-TC; 83735-TC; 84100-TC; 84300-TC; 84443-TC; 84484-TC; 84550-TC; 85025-TC; 85730-TC; 86803; 86850-TC; 87040-TC; 87081-TC; 87086-TC; 87806; 93307-TC; 94002-TC; 94003-TC; 94799-TC; 99082-TC; A4223; A6253; A6403; A7526; G0378; J0692; J2185; J2543; J2765; J3370; J3480; J3490; J7030; J7040; J7050; J7060; J7120; P9016; Q9963; Q9967

== ENCOUNTER 2023-05-06 13:26 | Inpatient (IN) | payer OTHER ==
[~2023-05-06] VITALS: Ht 152.4 cm; Wt 35.4 kg
[~2023-05-06 13:26] MED LIST: ACET-2605 GT; ACET-3511 GT; ALBU8.5H8 IH; ASPI-1169 GT; ATOR80TA GT; BISA10SU11 RC; CHLO473M5 MM; CHOL200059 GT; DOCU100T2 GT; GUAI100S9 GT; HYDR200T4 GT; IPRA12.9 IH; LIDO30AD10 TD; MAGN400O6 GT; MAGN400T26 GT; MERO1VIA23 IV; MULT-213 GT; NA P133E RC; NUTR150016 GT; OMEP20CA15 GT; ONDA4TAB5 GT; POLY17PO4 GT; POVI3780 TP; PRUC2TAB GT; SENN-261 GT; SILD50TA53 GT; SIME80TA15 GT; SODI473S9 TP; TRAM50TA2 GT; VANC500F2 IV; ZINC220T3 GT; ZOLP5TAB2 GT
[2023-05-06] MEDS ORDERED: IV NS 0.9% 1,000 ML IV ONE (14:00)
[2023-05-06 14:09] LABS: BASOPHILS % (AUTO) 0.7 % (0.0-2.0); EOSINOPHILS # (AUTO) 0.1 K/uL (0.0-0.7); EOSINOPHILS % (AUTO) 0.8 % (0.0-6.0); LYMPHOCYTES # (AUTO) 0.6 K/uL (0.8-4.8); LYMPHOCYTES % (AUTO) 10.1 % (20.0-44.0); MEAN CORPUSCULAR HEMOGLOBIN 31 PG (26.0-33.0); MEAN CORPUSCULAR HGB CONC 34 g/dl (31.0-36.0); MEAN CORPUSCULAR VOLUME 94 fL (82-100); MONOCYTES # (AUTO) 0.7 K/uL (0.1-1.30); NEUTROPHILS # (AUTO) 4.9 K/uL (1.8-8.9); NEUTROPHILS % (AUTO) 77.4 % (43.0-81.0); PLATELET COUNT (AUTO) 427 K/uL (150-450); RED CELL DISTRIBUTION WIDTH 15.9 % (11.5-15.0); WHITE BLOOD COUNT (AUTO) 6.4 K/uL (4.3-11.0)
[2023-05-06] MEDS ORDERED: ALBU8.5H8 IH (14:17)
[2023-05-06] MEDS ORDERED: AMIN30LI2 GT (14:17)
[2023-05-06] MEDS ORDERED: VANC500P5 IV (14:17)
[2023-05-06 14:23] LABS: HEMOGLOBIN 5.1 g/dL (11.5-14.8); RED BLOOD CELL COUNT(AUTO) 1.63 MIL/uL (4.0-5.2)
[2023-05-06 14:24] LABS: HEMATOCRIT 15 % (33-45); INR 1.08 (0.91-1.10); PROTHROMBIN TIME 11.3 SECS (9.2-11.1)
[2023-05-06 16:14] LABS: POTASSIUM 3.9 mmol/L (3.5-5.1)
[2023-05-06] MEDS ORDERED: IV NS 0.9% 500 ML BAG IV ONE (17:00)
[2023-05-06 17:06] LABS: ALBUMIN 1.7 g/dL (3.4-5.0); BILIRUBIN,DIRECT 0.1 mg/dL (0.0-0.2); BILIRUBIN,TOTAL 0.2 mg/dL (0.2-1.0); CALCIUM, SERUM 7.8 mg/dL (8.5-10.1); TOTAL PROTEIN, SERUM 4.5 g/dL (6.4-8.2)
[2023-05-06 17:07] LABS: CREATININE 0.2 mg/dL (0.6-1.3)
[2023-05-06 18:13] LABS: ANISOCYTOSIS 1+; BAND % (MANUAL) 4 % (0.0-5.0); HYPOCHROMASIA 1+; LYMPHOCYTES % (MANUAL) 11 % (16-48); MONOCYTES % (MANUAL) 9 % (0-11.0); NEUTROPHILS % (MANUAL) 76 (42-76); PLATELET ESTIMATE ADEQUATE
[2023-05-06 18:14] LABS: TARGET CELLS 1+
[2023-05-06] MEDS ORDERED: NA PHOS,M-B/NA PHOS,DI-BA 1 EA ENEMA RC PRN (18:30)
[2023-05-06] MEDS ORDERED: Medication Not On Formulary EA (Acetaminophen 20 ML) GT PRN (18:30)
[2023-05-06] MEDS ORDERED: GUAIFENESIN 300 MG/15 ML UDC GT PRN (18:30)
[2023-05-06] MEDS ORDERED: ACETAMINOPHEN 650 MG/20.3 ML UDC PO PRN (19:00)
[2023-05-06] MEDS ORDERED: MORPHINE SULFATE INJ 2 MG/ML DISP.SYRIN IV ONE (19:00)
[2023-05-06] MEDS ORDERED: MORPHINE SULFATE INJ 2 MG/ML DISP.SYRIN ONE (19:06)
[2023-05-06] MEDS ORDERED: ALBUTEROL FS 2.5 MG/3 ML VIAL.NEB NEB PRN (19:30)
[2023-05-06] MEDS: ALBUTEROL FS 2.5 MG/3 ML VIAL.NEB NEB SCH (20:53)
[2023-05-06] MEDS ORDERED: ALBUTEROL FS 2.5 MG/3 ML VIAL.NEB ONE (20:53)
[2023-05-06] MEDS: SIMETHICONE 80 MG TAB.CHEW GT SCH (22:00)
[2023-05-06] MEDS: SENNOSIDES 8.6 MG TABLET GT SCH (22:17)
[2023-05-06] MEDS: PANTOPRAZOLE 40 MG VIAL IV SCH (22:17)
[2023-05-06] MEDS: CHLORHEXIDINE GLUCONATE 15 ML UDC MM SCH (22:23)
[2023-05-06] MEDS: ATORVASTATIN 40 MG TABLET GT SCH (22:23)
[2023-05-07] VITALS: BP 90/57; TEMP 97.3; O2SAT 100
[2023-05-07] MEDS: ALBUTEROL FS 2.5 MG/3 ML VIAL.NEB NEB SCH ×4 (01:38→20:04)
[2023-05-07 03:53] LABS: BASOPHILS % (AUTO) 0.6 % (0.0-2.0); EOSINOPHILS % (AUTO) 0.5 % (0.0-6.0); HEMATOCRIT 30 % (33-45); HEMOGLOBIN 9.8 g/dL (11.5-14.8); LYMPHOCYTES # (AUTO) 0.9 K/uL (0.8-4.8); LYMPHOCYTES % (AUTO) 11.6 % (20.0-44.0); MEAN CORPUSCULAR HEMOGLOBIN 28 PG (26.0-33.0); MEAN CORPUSCULAR HGB CONC 33 g/dl (31.0-36.0); MEAN CORPUSCULAR VOLUME 85 fL (82-100); MONOCYTES # (AUTO) 0.9 K/uL (0.1-1.30); MONOCYTES % (AUTO) 10.5 % (2.0-12.0); NEUTROPHILS # (AUTO) 6.3 K/uL (1.8-8.9); NEUTROPHILS % (AUTO) 76.8 % (43.0-81.0); PLATELET COUNT (AUTO) 375 K/uL (150-450); RED BLOOD CELL COUNT(AUTO) 3.49 MIL/uL (4.0-5.2); RED CELL DISTRIBUTION WIDTH 18.3 % (11.5-15.0); WHITE BLOOD COUNT (AUTO) 8.2 K/uL (4.3-11.0)
[2023-05-07 04:00] VITALS: BP 99/64; TEMP 99; O2SAT 100
[2023-05-07 04:04] LABS: ALBUMIN 1.7 g/dL (3.4-5.0); BILIRUBIN,TOTAL 1.2 mg/dL (0.2-1.0); CALCIUM, SERUM 7.9 mg/dL (8.5-10.1); CREATININE 0.2 mg/dL (0.6-1.3); MAGNESIUM 1.7 mg/dL (1.8-2.4); PHOSPHORUS 2.7 mg/dL (2.5-4.9); TOTAL PROTEIN, SERUM 4.6 g/dL (6.4-8.2)
[2023-05-07 04:11] LABS: POTASSIUM 3.9 mmol/L (3.5-5.1)
[2023-05-07] MEDS ORDERED: DEXTROSE 50%-WATER 50 ML DISP.SYRIN IVP STA (05:36)
[2023-05-07] MEDS ORDERED: OMEPRAZOLE 20 MG CAPSULE.DR GT SCH (07:30)
[2023-05-07 08:00] VITALS: BP 102/72; TEMP 97.8; O2SAT 98
[2023-05-07] MEDS: PANTOPRAZOLE 40 MG VIAL IV SCH ×2 (08:22→16:44)
[2023-05-07] MEDS: MAGNESIUM HYDROXIDE 30 ML UDC GT SCH ×3 (08:22→16:50)
[2023-05-07] MEDS: SILDENAFIL CITRATE 20 MG TABLET PO SCH ×3 (08:22→16:44)
[2023-05-07] MEDS: POLYETHYLENE GLYCOL 3350 17 GM POWD.PACK GT SCH (08:22)
[2023-05-07] MEDS: CHLORHEXIDINE GLUCONATE 15 ML UDC MM SCH ×2 (08:22→21:37)
[2023-05-07] MEDS: DOCUSATE SODIUM LIQ 100 MG/10 ML UDC GT SCH ×2 (08:22→16:50)
[2023-05-07] MEDS: CHOLECALCIFEROL 1,000 UNIT TABLET (VIT D3) GT SCH (08:22)
[2023-05-07] MEDS: LIDOCAINE 5% (PATCH) 1 EA PATCH TP SCH (08:22)
[2023-05-07] MEDS: Z GUARD REMEDY 4 OZ OINT TP SCH (08:23)
[2023-05-07] MEDS: SIMETHICONE 80 MG TAB.CHEW GT SCH ×4 (08:23→21:36)
[2023-05-07] MEDS: HYDROXYCHLOROQUINE 200 MG TABLET GT SCH (08:27)
[2023-05-07] MEDS: THERAHONEY GEL 1.5 OZ TUBE TP SCH (09:00)
[2023-05-07] MEDS: MAGNESIUM OXIDE 400 MG TABLET GT SCH ×3 (10:16→16:45)
[2023-05-07 10:53] LABS: HEMOGLOBIN 8.8 g/dL (11.5-14.8)
[2023-05-07 12:00] VITALS: BP 110/68; TEMP 98.2; O2SAT 99
[2023-05-07] MEDS: MORPHINE SULFATE INJ 2 MG/ML DISP.SYRIN IV PRN ×2 (12:30→21:40)
[2023-05-07] MEDS: JEVITY 1.2 CAL 1,000 ML BOTTLE GT PRN (12:56)
[2023-05-07 16:00] VITALS: BP 100/67; TEMP 98.8; O2SAT 99
[2023-05-07] MEDS: DAKINS QUARTER STRENGTH (0.125%) 480 ML BOTTLE TOP SCH (16:44)
[2023-05-07] MEDS: ARGININE/GLUTAMINE/CALCIUM BMB 1 EACH POWD.PACK GT SCH (16:45)
[2023-05-07] MEDS: ASPIRIN 81 MG TAB.CHEW GT SCH (17:06)
[2023-05-07 19:59] LABS: HEMOGLOBIN 8.5 g/dL (11.5-14.8)
[2023-05-07 20:00] VITALS: BP 139/72; TEMP 98.2; O2SAT 100
[2023-05-07] MEDS: MEROPENEM 500 MG in IV NS 0.9% 50 ML IV SCH (20:15)
[2023-05-07] MEDS: ATORVASTATIN 40 MG TABLET GT SCH (21:36)
[2023-05-07] MEDS: SENNOSIDES 8.6 MG TABLET GT SCH (21:37)
[2023-05-07] MEDS: VANCOMYCIN 0.75 GM in IV D5W 250 ML IV SCH (21:41)
[2023-05-08] VITALS: BP 107/55; TEMP 98; O2SAT 100
[2023-05-08] MEDS: ALBUTEROL FS 2.5 MG/3 ML VIAL.NEB NEB SCH ×4 (01:36→20:28)
[2023-05-08 03:29] LABS: HEMOGLOBIN 8.1 g/dL (11.5-14.8)
[2023-05-08 04:00] VITALS: BP 97/63; TEMP 98.2; O2SAT 100
[2023-05-08 04:08] LABS: OCCULT BLOOD STOOL POSITIVE (NEGATIVE)
[2023-05-08 04:12] LABS: CALCIUM, SERUM 7.7 mg/dL (8.5-10.1); CREATININE 0.3 mg/dL (0.6-1.3); POTASSIUM 3.5 mmol/L (3.5-5.1)
[2023-05-08] MEDS: MEROPENEM 500 MG in IV NS 0.9% 50 ML IV SCH ×3 (04:13→20:04)
[2023-05-08] MEDS: VANCOMYCIN 0.75 GM in IV D5W 250 ML IV SCH ×3 (05:05→21:00)
[2023-05-08 08:00] VITALS: BP 92/63; TEMP 98.2; O2SAT 100
[2023-05-08] MEDS: THERAHONEY GEL 1.5 OZ TUBE TP SCH (09:00)
[2023-05-08] MEDS: SIMETHICONE 80 MG TAB.CHEW GT SCH ×4 (09:09→21:38)
[2023-05-08] MEDS: PANTOPRAZOLE 40 MG VIAL IV SCH (09:09)
[2023-05-08] MEDS: ARGININE/GLUTAMINE/CALCIUM BMB 1 EACH POWD.PACK GT SCH ×2 (09:09→18:01)
[2023-05-08] MEDS: PROSOURCE / PROSTAT (PYXIS) 30 ML UDC GT SCH (09:09)
[2023-05-08] MEDS: LIDOCAINE 5% (PATCH) 1 EA PATCH TP SCH (09:09)
[2023-05-08] MEDS: POLYETHYLENE GLYCOL 3350 17 GM POWD.PACK GT SCH (09:10)
[2023-05-08] MEDS: SILDENAFIL CITRATE 20 MG TABLET PO SCH ×3 (09:11→18:00)
[2023-05-08] MEDS: DOCUSATE SODIUM LIQ 100 MG/10 ML UDC GT SCH ×2 (09:11→16:25)
[2023-05-08] MEDS: MAGNESIUM HYDROXIDE 30 ML UDC GT SCH ×3 (09:11→16:25)
[2023-05-08] MEDS: CHLORHEXIDINE GLUCONATE 15 ML UDC MM SCH ×2 (09:11→21:37)
[2023-05-08] MEDS: Z GUARD REMEDY 4 OZ OINT TP SCH (09:12)
[2023-05-08] MEDS: HYDROXYCHLOROQUINE 200 MG TABLET GT SCH (09:12)
[2023-05-08] MEDS: DAKINS QUARTER STRENGTH (0.125%) 480 ML BOTTLE TOP SCH (09:12)
[2023-05-08] MEDS: MAGNESIUM OXIDE 400 MG TABLET GT SCH ×3 (09:12→18:00)
[2023-05-08] MEDS: CHOLECALCIFEROL 1,000 UNIT TABLET (VIT D3) GT SCH (09:12)
[2023-05-08] MEDS: ACETAMINOPHEN 650 MG/20.3 ML UDC GT PRN ×2 (09:40→23:56)
[2023-05-08 10:58] LABS: HEMOGLOBIN 9.8 g/dL (11.5-14.8)
[2023-05-08 12:00] VITALS: BP 96/62; TEMP 98; O2SAT 100
[2023-05-08 16:00] VITALS: BP 96/71; TEMP 98.2; O2SAT 99
[2023-05-08] MEDS: PANTOPRAZOLE 40 MG/PACK PACK GT SCH (18:00)
[2023-05-08] MEDS: ASPIRIN 81 MG TAB.CHEW GT SCH (18:00)
[2023-05-08 19:38] LABS: HEMOGLOBIN 8.6 g/dL (11.5-14.8)
[2023-05-08 20:00] VITALS: BP 99/72; TEMP 98.4; O2SAT 100
[2023-05-08] MEDS: ATORVASTATIN 40 MG TABLET GT SCH (21:37)
[2023-05-08] MEDS: SENNOSIDES 8.6 MG TABLET GT SCH (21:37)
[2023-05-08] MEDS: Z GUARD REMEDY 4 OZ OINT TP PRN (23:56)
[2023-05-09] VITALS: BP_SYST 80; BP_SYST 89; BP_DIAS 61; BP_DIAS 66; TEMP 98.2; O2SAT 96
[2023-05-09] MEDS: ONDANSETRON HCL/PF 4 MG/2 ML VIAL IVP PRN (00:35)
[2023-05-09] MEDS ORDERED: IV NS 0.9% 500 ML IV ONE (01:00)
[2023-05-09] MEDS: JEVITY 1.2 CAL 1,000 ML BOTTLE GT PRN (02:01)
[2023-05-09] MEDS: ALBUTEROL FS 2.5 MG/3 ML VIAL.NEB NEB SCH ×4 (02:26→20:08)
[2023-05-09 03:46] LABS: HEMOGLOBIN 9.6 g/dL (11.5-14.8)
[2023-05-09] MEDS: MEROPENEM 500 MG in IV NS 0.9% 50 ML IV SCH ×3 (03:58→20:00)
[2023-05-09 04:00] VITALS: BP 93/73; TEMP 98.2; O2SAT 97
[2023-05-09 04:04] LABS: CALCIUM, SERUM 7.6 mg/dL (8.5-10.1); CREATININE 0.3 mg/dL (0.6-1.3); POTASSIUM 3.8 mmol/L (3.5-5.1)
[2023-05-09 08:00] VITALS: BP 89/48; TEMP 207.7; TEMP 97.6; O2SAT 100
[2023-05-09] MEDS: HYDROXYCHLOROQUINE 200 MG TABLET GT SCH (08:15)
[2023-05-09] MEDS: CHOLECALCIFEROL 1,000 UNIT TABLET (VIT D3) GT SCH (08:15)
[2023-05-09] MEDS: CHLORHEXIDINE GLUCONATE 15 ML UDC MM SCH ×2 (08:16→21:04)
[2023-05-09] MEDS: PANTOPRAZOLE 40 MG/PACK PACK GT SCH ×2 (08:16→16:33)
[2023-05-09] MEDS: MAGNESIUM OXIDE 400 MG TABLET GT SCH ×3 (08:18→16:33)
[2023-05-09] MEDS: ARGININE/GLUTAMINE/CALCIUM BMB 1 EACH POWD.PACK GT SCH ×2 (08:19→16:33)
[2023-05-09] MEDS: PROSOURCE / PROSTAT (PYXIS) 30 ML UDC GT SCH (08:23)
[2023-05-09] MEDS: DOCUSATE SODIUM LIQ 100 MG/10 ML UDC GT SCH ×2 (08:24→16:32)
[2023-05-09] MEDS: MAGNESIUM HYDROXIDE 30 ML UDC GT SCH ×3 (08:25→16:32)
[2023-05-09] MEDS: POLYETHYLENE GLYCOL 3350 17 GM POWD.PACK GT SCH (08:25)
[2023-05-09] MEDS: LIDOCAINE 5% (PATCH) 1 EA PATCH TP SCH (08:29)
[2023-05-09] MEDS: DAKINS QUARTER STRENGTH (0.125%) 480 ML BOTTLE TOP SCH (08:50)
[2023-05-09] MEDS: Z GUARD REMEDY 4 OZ OINT TP SCH (08:51)
[2023-05-09] MEDS: SIMETHICONE 80 MG TAB.CHEW GT SCH ×4 (08:53→21:05)
[2023-05-09] MEDS: MIDODRINE HCL (5MG) 5 MG TABLET PO SCH ×3 (10:20→16:34)
[2023-05-09] MEDS: SILDENAFIL CITRATE 20 MG TABLET PO SCH ×3 (10:23→16:33)
[2023-05-09 12:00] VITALS: BP 90/49; TEMP 98.6; O2SAT 100
[2023-05-09] MEDS: THERAHONEY GEL 1.5 OZ TUBE TP SCH (13:16)
[2023-05-09] MEDS: VANCOMYCIN 500 MG in IV D5W 100ml IV SCH (13:52)
[2023-05-09 16:00] VITALS: BP_SYST 85; BP_SYST 90; BP_DIAS 47; BP_DIAS 60; TEMP 98.6; TEMP 98.9; O2SAT 100; O2SAT 98
[2023-05-09] MEDS: ASPIRIN 81 MG TAB.CHEW GT SCH (17:12)
[2023-05-09 20:00] VITALS: BP_SYST 85; BP_SYST 94; BP_DIAS 49; BP_DIAS 59; TEMP 98.2; O2SAT 100
[2023-05-09] MEDS: SENNOSIDES 8.6 MG TABLET GT SCH (21:05)
[2023-05-09] MEDS: ATORVASTATIN 40 MG TABLET GT SCH (21:05)
[2023-05-09] MEDS: ACETAMINOPHEN 650 MG/20.3 ML UDC GT PRN (21:25)
[2023-05-10] VITALS (7 sets, daily range): BP systolic 80–104; BP diastolic 37–64; TEMP 96.5–98.5; O2SAT 95–100
[2023-05-10] MEDS: VANCOMYCIN 500 MG in IV D5W 100ml IV SCH ×2 (01:10→12:45)
[2023-05-10] MEDS: ALBUTEROL FS 2.5 MG/3 ML VIAL.NEB NEB SCH ×4 (02:02→19:48)
[2023-05-10] MEDS: JEVITY 1.2 CAL 1,000 ML BOTTLE GT PRN (02:43)
[2023-05-10] MEDS: ACETAMINOPHEN 650 MG/20.3 ML UDC GT PRN ×3 (04:03→21:05)
[2023-05-10] MEDS: Z GUARD REMEDY 4 OZ OINT TP PRN (04:03)
[2023-05-10] MEDS: MEROPENEM 500 MG in IV NS 0.9% 50 ML IV SCH ×3 (04:03→19:34)
[2023-05-10 07:05] LABS: BASOPHILS % (AUTO) 0.2 % (0.0-2.0); EOSINOPHILS % (AUTO) 0.3 % (0.0-6.0); HEMATOCRIT 25 % (33-45); HEMOGLOBIN 7.9 g/dL (11.5-14.8); LYMPHOCYTES # (AUTO) 0.8 K/uL (0.8-4.8); LYMPHOCYTES % (AUTO) 5.7 % (20.0-44.0); MEAN CORPUSCULAR HEMOGLOBIN 28 PG (26.0-33.0); MEAN CORPUSCULAR HGB CONC 32 g/dl (31.0-36.0); MEAN CORPUSCULAR VOLUME 87 fL (82-100); MONOCYTES # (AUTO) 0.4 K/uL (0.1-1.30); MONOCYTES % (AUTO) 3.2 % (2.0-12.0); NEUTROPHILS # (AUTO) 12.3 K/uL (1.8-8.9); NEUTROPHILS % (AUTO) 90.6 % (43.0-81.0); PLATELET COUNT (AUTO) 437 K/uL (150-450); RED BLOOD CELL COUNT(AUTO) 2.81 MIL/uL (4.0-5.2); RED CELL DISTRIBUTION WIDTH 19.7 % (11.5-15.0); WHITE BLOOD COUNT (AUTO) 13.6 K/uL (4.3-11.0)
[2023-05-10 07:41] LABS: CALCIUM, SERUM 7.4 mg/dL (8.5-10.1); CREATININE 0.3 mg/dL (0.6-1.3); MAGNESIUM 1.8 mg/dL (1.8-2.4); PHOSPHORUS 2.7 mg/dL (2.5-4.9); POTASSIUM 3.6 mmol/L (3.5-5.1)
[2023-05-10] MEDS: CHLORHEXIDINE GLUCONATE 15 ML UDC MM SCH ×2 (08:36→21:05)
[2023-05-10] MEDS: ARGININE/GLUTAMINE/CALCIUM BMB 1 EACH POWD.PACK GT SCH ×2 (08:36→16:33)
[2023-05-10] MEDS: PANTOPRAZOLE 40 MG/PACK PACK GT SCH ×2 (08:36→16:34)
[2023-05-10] MEDS: MIDODRINE HCL (5MG) 5 MG TABLET PO SCH ×3 (08:37→16:33)
[2023-05-10] MEDS: CHOLECALCIFEROL 1,000 UNIT TABLET (VIT D3) GT SCH (08:38)
[2023-05-10] MEDS: HYDROXYCHLOROQUINE 200 MG TABLET GT SCH (08:38)
[2023-05-10] MEDS: SILDENAFIL CITRATE 20 MG TABLET PO SCH ×3 (08:38→16:34)
[2023-05-10] MEDS: MAGNESIUM OXIDE 400 MG TABLET GT SCH ×3 (08:38→16:34)
[2023-05-10] MEDS: PROSOURCE / PROSTAT (PYXIS) 30 ML UDC GT SCH (08:42)
[2023-05-10] MEDS: MAGNESIUM HYDROXIDE 30 ML UDC GT SCH ×3 (08:43→16:34)
[2023-05-10] MEDS: POLYETHYLENE GLYCOL 3350 17 GM POWD.PACK GT SCH (08:43)
[2023-05-10] MEDS: DOCUSATE SODIUM LIQ 100 MG/10 ML UDC GT SCH ×2 (08:43→16:34)
[2023-05-10] MEDS: SIMETHICONE 80 MG TAB.CHEW GT SCH ×4 (08:44→21:05)
[2023-05-10] MEDS: THERAHONEY GEL 1.5 OZ TUBE TP SCH (08:45)
[2023-05-10] MEDS: LIDOCAINE 5% (PATCH) 1 EA PATCH TP SCH (08:45)
[2023-05-10] MEDS: Z GUARD REMEDY 4 OZ OINT TP SCH (08:45)
[2023-05-10] MEDS: DAKINS QUARTER STRENGTH (0.125%) 480 ML BOTTLE TOP SCH (08:46)
[2023-05-10 11:52] LABS: HEMOGLOBIN 8.1 g/dL (11.5-14.8)
[2023-05-10] MEDS: ASPIRIN 81 MG TAB.CHEW GT SCH (17:06)
[2023-05-10] MEDS: ONDANSETRON HCL/PF 4 MG/2 ML VIAL IVP PRN (17:20)
[2023-05-10] MEDS: ATORVASTATIN 40 MG TABLET GT SCH (21:05)
[2023-05-10] MEDS: SENNOSIDES 8.6 MG TABLET GT SCH (21:05)
[2023-05-11] VITALS: BP 92/44; TEMP 97.7; O2SAT 98
[2023-05-11] MEDS: VANCOMYCIN 500 MG in IV D5W 100ml IV SCH ×2 (00:21→13:29)
[2023-05-11] MEDS: ONDANSETRON HCL/PF 4 MG/2 ML VIAL IVP PRN (00:33)
[2023-05-11] MEDS: ALBUTEROL FS 2.5 MG/3 ML VIAL.NEB NEB SCH ×4 (01:55→19:57)
[2023-05-11] MEDS: JEVITY 1.2 CAL 1,000 ML BOTTLE GT PRN (02:23)
[2023-05-11] MEDS: MEROPENEM 500 MG in IV NS 0.9% 50 ML IV SCH ×3 (03:00→19:44)
[2023-05-11] MEDS: ACETAMINOPHEN 650 MG/20.3 ML UDC GT PRN ×2 (03:07→12:45)
[2023-05-11 04:00] VITALS: BP 83/49; TEMP 97.5; O2SAT 98
[2023-05-11] MEDS ORDERED: IV NS 0.9% 500 ML BAG IV ONE (06:00)
[2023-05-11 07:16] LABS: BASOPHILS % (AUTO) 0.2 % (0.0-2.0); EOSINOPHILS % (AUTO) 0.2 % (0.0-6.0); HEMATOCRIT 23 % (33-45); HEMOGLOBIN 7.4 g/dL (11.5-14.8); LYMPHOCYTES # (AUTO) 0.6 K/uL (0.8-4.8); MEAN CORPUSCULAR HEMOGLOBIN 29 PG (26.0-33.0); MEAN CORPUSCULAR HGB CONC 32 g/dl (31.0-36.0); MEAN CORPUSCULAR VOLUME 88 fL (82-100); MONOCYTES # (AUTO) 0.7 K/uL (0.1-1.30); MONOCYTES % (AUTO) 4.1 % (2.0-12.0); NEUTROPHILS # (AUTO) 14.7 K/uL (1.8-8.9); NEUTROPHILS % (AUTO) 91.5 % (43.0-81.0); PLATELET COUNT (AUTO) 401 K/uL (150-450); RED BLOOD CELL COUNT(AUTO) 2.59 MIL/uL (4.0-5.2); RED CELL DISTRIBUTION WIDTH 18.2 % (11.5-15.0); WHITE BLOOD COUNT (AUTO) 16.1 K/uL (4.3-11.0)
[2023-05-11 08:00] VITALS: BP 97/49; TEMP 97.2; O2SAT 98
[2023-05-11] MEDS: PANTOPRAZOLE 40 MG/PACK PACK GT SCH ×2 (08:27→17:07)
[2023-05-11] MEDS: DOCUSATE SODIUM LIQ 100 MG/10 ML UDC GT SCH ×2 (08:27→17:00)
[2023-05-11] MEDS: ARGININE/GLUTAMINE/CALCIUM BMB 1 EACH POWD.PACK GT SCH ×2 (08:27→17:08)
[2023-05-11] MEDS: POLYETHYLENE GLYCOL 3350 17 GM POWD.PACK GT SCH (08:27)
[2023-05-11] MEDS: CHOLECALCIFEROL 1,000 UNIT TABLET (VIT D3) GT SCH (08:28)
[2023-05-11] MEDS: MAGNESIUM OXIDE 400 MG TABLET GT SCH ×3 (08:28→17:07)
[2023-05-11] MEDS: THERAHONEY GEL 1.5 OZ TUBE TP SCH (08:28)
[2023-05-11] MEDS: SIMETHICONE 80 MG TAB.CHEW GT SCH ×4 (08:28→21:26)
[2023-05-11] MEDS: MIDODRINE HCL (5MG) 5 MG TABLET PO SCH ×3 (08:28→17:07)
[2023-05-11] MEDS: PROSOURCE / PROSTAT (PYXIS) 30 ML UDC GT SCH (08:29)
[2023-05-11] MEDS: MAGNESIUM HYDROXIDE 30 ML UDC GT SCH ×3 (08:29→17:00)
[2023-05-11] MEDS: SILDENAFIL CITRATE 20 MG TABLET PO SCH ×3 (08:29→17:07)
[2023-05-11] MEDS: HYDROXYCHLOROQUINE 200 MG TABLET GT SCH (08:29)
[2023-05-11] MEDS: CHLORHEXIDINE GLUCONATE 15 ML UDC MM SCH ×2 (08:29→21:25)
[2023-05-11] MEDS: LIDOCAINE 5% (PATCH) 1 EA PATCH TP SCH (08:31)
[2023-05-11] MEDS: DAKINS QUARTER STRENGTH (0.125%) 480 ML BOTTLE TOP SCH (08:34)
[2023-05-11] MEDS: Z GUARD REMEDY 4 OZ OINT TP SCH (08:34)
[2023-05-11 08:38] LABS: CALCIUM, SERUM 7.3 mg/dL (8.5-10.1); CREATININE 0.3 mg/dL (0.6-1.3); MAGNESIUM 1.6 mg/dL (1.8-2.4); PHOSPHORUS 2.1 mg/dL (2.5-4.9)
[2023-05-11] MEDS ORDERED: NEUTRA PHOS 1 POWD.PACKET PO ONE (10:30)
[2023-05-11] MEDS ORDERED: MAGNESIUM OXIDE 400 MG TABLET GT ONE (10:30)
[2023-05-11 12:15] VITALS: BP 90/58; TEMP 97.7; O2SAT 98
[2023-05-11] MEDS: MORPHINE SULFATE INJ 2 MG/ML DISP.SYRIN IV PRN (15:25)
[2023-05-11 16:00] VITALS: BP 96/61; TEMP 97.7; O2SAT 100
[2023-05-11] MEDS: ASPIRIN 81 MG TAB.CHEW GT SCH (17:06)
[2023-05-11 20:00] VITALS: BP 91/55; TEMP 97.5; O2SAT 100
[2023-05-11] MEDS: ATORVASTATIN 40 MG TABLET GT SCH (21:25)
[2023-05-11] MEDS: SENNOSIDES 8.6 MG TABLET GT SCH (21:26)
[2023-05-12] VITALS: BP 95/61; TEMP 98; O2SAT 100
[2023-05-12] MEDS: VANCOMYCIN 500 MG in IV D5W 100ml IV SCH ×2 (00:35→13:53)
[2023-05-12] MEDS: ALBUTEROL FS 2.5 MG/3 ML VIAL.NEB NEB SCH ×4 (01:41→20:25)
[2023-05-12] MEDS: MEROPENEM 500 MG in IV NS 0.9% 50 ML IV SCH ×3 (03:47→21:33)
[2023-05-12 04:00] VITALS: BP 91/50; TEMP 97.7; O2SAT 100
[2023-05-12] MEDS: JEVITY 1.2 CAL 1,000 ML BOTTLE GT PRN (05:12)
[2023-05-12 08:00] VITALS: BP_SYST 81; BP_SYST 90; BP_DIAS 56; BP_DIAS 58; TEMP 97.8; O2SAT 99
[2023-05-12] MEDS: CHLORHEXIDINE GLUCONATE 15 ML UDC MM SCH ×2 (09:30→21:34)
[2023-05-12] MEDS: MAGNESIUM HYDROXIDE 30 ML UDC GT SCH ×3 (09:30→18:11)
[2023-05-12] MEDS: ARGININE/GLUTAMINE/CALCIUM BMB 1 EACH POWD.PACK GT SCH ×2 (09:30→18:23)
[2023-05-12] MEDS: PANTOPRAZOLE 40 MG/PACK PACK GT SCH ×2 (09:30→18:11)
[2023-05-12] MEDS: SIMETHICONE 80 MG TAB.CHEW GT SCH ×4 (09:30→21:35)
[2023-05-12] MEDS: SILDENAFIL CITRATE 20 MG TABLET PO SCH ×3 (09:30→18:13)
[2023-05-12] MEDS: CHOLECALCIFEROL 1,000 UNIT TABLET (VIT D3) GT SCH (09:30)
[2023-05-12] MEDS: HYDROXYCHLOROQUINE 200 MG TABLET GT SCH (09:30)
[2023-05-12] MEDS: POLYETHYLENE GLYCOL 3350 17 GM POWD.PACK GT SCH (09:30)
[2023-05-12] MEDS: PROSOURCE / PROSTAT (PYXIS) 30 ML UDC GT SCH (09:31)
[2023-05-12 09:35] LABS: BASOPHILS % (AUTO) 0.2 % (0.0-2.0); EOSINOPHILS # (AUTO) 0.1 K/uL (0.0-0.7); EOSINOPHILS % (AUTO) 0.4 % (0.0-6.0); HEMATOCRIT 26 % (33-45); HEMOGLOBIN 8.2 g/dL (11.5-14.8); LYMPHOCYTES # (AUTO) 0.8 K/uL (0.8-4.8); LYMPHOCYTES % (AUTO) 6.6 % (20.0-44.0); MEAN CORPUSCULAR HEMOGLOBIN 28 PG (26.0-33.0); MEAN CORPUSCULAR HGB CONC 32 g/dl (31.0-36.0); MEAN CORPUSCULAR VOLUME 87 fL (82-100); MONOCYTES # (AUTO) 0.5 K/uL (0.1-1.30); MONOCYTES % (AUTO) 4.3 % (2.0-12.0); NEUTROPHILS % (AUTO) 88.5 % (43.0-81.0); PLATELET COUNT (AUTO) 490 K/uL (150-450); RED BLOOD CELL COUNT(AUTO) 2.96 MIL/uL (4.0-5.2); RED CELL DISTRIBUTION WIDTH 17.8 % (11.5-15.0); WHITE BLOOD COUNT (AUTO) 12.4 K/uL (4.3-11.0)
[2023-05-12] MEDS: DOCUSATE SODIUM LIQ 100 MG/10 ML UDC GT SCH ×2 (09:35→18:11)
[2023-05-12] MEDS: MIDODRINE HCL (5MG) 5 MG TABLET PO SCH ×3 (09:35→18:11)
[2023-05-12] MEDS: MAGNESIUM OXIDE 400 MG TABLET GT SCH ×3 (09:35→18:12)
[2023-05-12] MEDS: LIDOCAINE 5% (PATCH) 1 EA PATCH TP SCH (09:38)
[2023-05-12] MEDS: Z GUARD REMEDY 4 OZ OINT TP SCH (09:40)
[2023-05-12] MEDS: DAKINS QUARTER STRENGTH (0.125%) 480 ML BOTTLE TOP SCH (09:40)
[2023-05-12] MEDS: THERAHONEY GEL 1.5 OZ TUBE TP SCH (09:41)
[2023-05-12 09:50] LABS: CALCIUM, SERUM 7.6 mg/dL (8.5-10.1); CREATININE 0.2 mg/dL (0.6-1.3); MAGNESIUM 1.5 mg/dL (1.8-2.4); PHOSPHORUS 2.7 mg/dL (2.5-4.9); POTASSIUM 4.1 mmol/L (3.5-5.1)
[2023-05-12 12:00] VITALS: BP 91/66; TEMP 97.9; O2SAT 95
[2023-05-12] MEDS ORDERED: IV NS 0.9% 1,000 ML IV ONE (12:30)
[2023-05-12] MEDS ORDERED: Magnesium 1GM/D5W 100ML PREMIX PIGGYBACK IV ONE (14:30)
[2023-05-12 16:00] VITALS: BP_SYST 81; BP_SYST 91; BP_DIAS 61; BP_DIAS 62; TEMP 98.6; O2SAT 99
[2023-05-12] MEDS: ASPIRIN 81 MG TAB.CHEW GT SCH (18:12)
[2023-05-12 20:00] VITALS: BP 78/55; TEMP 98.8; O2SAT 99
[2023-05-12] MEDS: ATORVASTATIN 40 MG TABLET GT SCH (21:34)
[2023-05-12] MEDS: SENNOSIDES 8.6 MG TABLET GT SCH (21:34)
[2023-05-12] MEDS: ACETAMINOPHEN 650 MG/20.3 ML UDC GT PRN (22:14)
[2023-05-13] VITALS: BP 78/49; TEMP 97.9; O2SAT 100
[2023-05-13] MEDS: ALBUTEROL FS 2.5 MG/3 ML VIAL.NEB NEB SCH ×4 (00:48→20:07)
[2023-05-13] MEDS: VANCOMYCIN 500 MG in IV D5W 100ml IV SCH ×2 (01:21→12:43)
[2023-05-13 04:00] VITALS: BP 94/62; TEMP 97.3; O2SAT 95
[2023-05-13] MEDS: JEVITY 1.2 CAL 1,000 ML BOTTLE GT PRN (04:30)
[2023-05-13] MEDS: MEROPENEM 500 MG in IV NS 0.9% 50 ML IV SCH ×3 (04:30→20:37)
[2023-05-13 06:47] LABS: BASOPHILS % (AUTO) 0.3 % (0.0-2.0); EOSINOPHILS # (AUTO) 0.1 K/uL (0.0-0.7); EOSINOPHILS % (AUTO) 0.6 % (0.0-6.0); HEMATOCRIT 23 % (33-45); HEMOGLOBIN 7.6 g/dL (11.5-14.8); LYMPHOCYTES # (AUTO) 0.7 K/uL (0.8-4.8); LYMPHOCYTES % (AUTO) 7.3 % (20.0-44.0); MEAN CORPUSCULAR HEMOGLOBIN 29 PG (26.0-33.0); MEAN CORPUSCULAR HGB CONC 33 g/dl (31.0-36.0); MEAN CORPUSCULAR VOLUME 87 fL (82-100); MONOCYTES # (AUTO) 0.5 K/uL (0.1-1.30); MONOCYTES % (AUTO) 4.5 % (2.0-12.0); NEUTROPHILS # (AUTO) 8.9 K/uL (1.8-8.9); NEUTROPHILS % (AUTO) 87.3 % (43.0-81.0); PLATELET COUNT (AUTO) 441 K/uL (150-450); RED BLOOD CELL COUNT(AUTO) 2.66 MIL/uL (4.0-5.2); RED CELL DISTRIBUTION WIDTH 17.1 % (11.5-15.0); WHITE BLOOD COUNT (AUTO) 10.2 K/uL (4.3-11.0)
[2023-05-13 07:27] LABS: CALCIUM, SERUM 7.5 mg/dL (8.5-10.1); CREATININE 0.2 mg/dL (0.6-1.3); MAGNESIUM 1.9 mg/dL (1.8-2.4)
[2023-05-13 08:00] VITALS: BP 102/65; TEMP 97.9; O2SAT 95
[2023-05-13] MEDS: CHLORHEXIDINE GLUCONATE 15 ML UDC MM SCH ×2 (09:06→21:45)
[2023-05-13] MEDS: LIDOCAINE 5% (PATCH) 1 EA PATCH TP SCH (09:06)
[2023-05-13] MEDS: POLYETHYLENE GLYCOL 3350 17 GM POWD.PACK GT SCH (09:06)
[2023-05-13] MEDS: DOCUSATE SODIUM LIQ 100 MG/10 ML UDC GT SCH ×2 (09:06→17:00)
[2023-05-13] MEDS: MAGNESIUM HYDROXIDE 30 ML UDC GT SCH ×3 (09:06→17:00)
[2023-05-13] MEDS: CHOLECALCIFEROL 1,000 UNIT TABLET (VIT D3) GT SCH (09:07)
[2023-05-13] MEDS: PANTOPRAZOLE 40 MG/PACK PACK GT SCH ×2 (09:07→17:00)
[2023-05-13] MEDS: HYDROXYCHLOROQUINE 200 MG TABLET GT SCH (09:07)
[2023-05-13] MEDS: SILDENAFIL CITRATE 20 MG TABLET PO SCH ×3 (09:08→17:00)
[2023-05-13] MEDS: MAGNESIUM OXIDE 400 MG TABLET GT SCH ×3 (09:08→17:00)
[2023-05-13] MEDS: MIDODRINE HCL (5MG) 5 MG TABLET PO SCH ×3 (09:08→17:00)
[2023-05-13] MEDS: SIMETHICONE 80 MG TAB.CHEW GT SCH ×4 (09:08→20:37)
[2023-05-13] MEDS: ARGININE/GLUTAMINE/CALCIUM BMB 1 EACH POWD.PACK GT SCH ×2 (09:09→17:00)
[2023-05-13] MEDS: PROSOURCE / PROSTAT (PYXIS) 30 ML UDC GT SCH (09:09)
[2023-05-13] MEDS: DAKINS QUARTER STRENGTH (0.125%) 480 ML BOTTLE TOP SCH (09:10)
[2023-05-13] MEDS: THERAHONEY GEL 1.5 OZ TUBE TP SCH (09:10)
[2023-05-13] MEDS: Z GUARD REMEDY 4 OZ OINT TP SCH (09:10)
[2023-05-13 12:00] VITALS: BP 98/71; TEMP 98.4; O2SAT 95
[2023-05-13] MEDS ORDERED: JEVITY 1.2 CAL 1,000 ML BOTTLE GT PRN (12:30)
[2023-05-13] MEDS: MORPHINE SULFATE INJ 2 MG/ML DISP.SYRIN IV PRN (14:03)
[2023-05-13 16:00] VITALS: BP 92/62; TEMP 97.9; O2SAT 95
[2023-05-13] MEDS ORDERED: NEUTRA PHOS 1 POWD.PACKET NG ONE (17:00)
[2023-05-13] MEDS: ASPIRIN 81 MG TAB.CHEW GT SCH (17:11)
[2023-05-13 20:00] VITALS: BP 98/60; TEMP 97.8; O2SAT 98
[2023-05-13] MEDS: SENNOSIDES 8.6 MG TABLET GT SCH (22:48)
[2023-05-13] MEDS: ATORVASTATIN 40 MG TABLET GT SCH (22:48)
[2023-05-14] VITALS: BP 100/60; TEMP 97.2; O2SAT 97
[2023-05-14] MEDS: VANCOMYCIN 500 MG in IV D5W 100ml IV SCH ×2 (02:07→13:47)
[2023-05-14] MEDS: ALBUTEROL FS 2.5 MG/3 ML VIAL.NEB NEB SCH ×4 (02:11→20:19)
[2023-05-14 04:00] VITALS: BP 90/56; TEMP 97.5; O2SAT 98
[2023-05-14] MEDS: MEROPENEM 500 MG in IV NS 0.9% 50 ML IV SCH ×3 (04:41→20:15)
[2023-05-14 08:00] VITALS: BP 86/65; TEMP 97.7; O2SAT 98
[2023-05-14 08:00] LABS: CREATININE 0.3 mg/dL (0.6-1.3); POTASSIUM 3.4 mmol/L (3.5-5.1)
[2023-05-14] MEDS: DOCUSATE SODIUM LIQ 100 MG/10 ML UDC GT SCH ×2 (08:33→16:39)
[2023-05-14] MEDS: POLYETHYLENE GLYCOL 3350 17 GM POWD.PACK GT SCH (08:33)
[2023-05-14] MEDS: MAGNESIUM HYDROXIDE 30 ML UDC GT SCH ×3 (08:34→16:39)
[2023-05-14] MEDS: MAGNESIUM OXIDE 400 MG TABLET GT SCH ×3 (08:42→16:42)
[2023-05-14] MEDS: SIMETHICONE 80 MG TAB.CHEW GT SCH ×4 (08:42→21:47)
[2023-05-14] MEDS: CHLORHEXIDINE GLUCONATE 15 ML UDC MM SCH ×2 (08:42→21:46)
[2023-05-14] MEDS: CHOLECALCIFEROL 1,000 UNIT TABLET (VIT D3) GT SCH (08:42)
[2023-05-14] MEDS: PANTOPRAZOLE 40 MG/PACK PACK GT SCH ×2 (08:42→16:42)
[2023-05-14] MEDS: MIDODRINE HCL (5MG) 5 MG TABLET PO SCH ×3 (08:43→16:43)
[2023-05-14] MEDS: LIDOCAINE 5% (PATCH) 1 EA PATCH TP SCH (08:45)
[2023-05-14] MEDS: ARGININE/GLUTAMINE/CALCIUM BMB 1 EACH POWD.PACK GT SCH ×2 (08:59→16:42)
[2023-05-14] MEDS: PROSOURCE / PROSTAT (PYXIS) 30 ML UDC GT SCH (08:59)
[2023-05-14] MEDS: SILDENAFIL CITRATE 20 MG TABLET PO SCH ×3 (09:00→16:40)
[2023-05-14] MEDS: HYDROXYCHLOROQUINE 200 MG TABLET GT SCH (09:52)
[2023-05-14] MEDS: DAKINS QUARTER STRENGTH (0.125%) 480 ML BOTTLE TOP SCH (10:04)
[2023-05-14] MEDS: THERAHONEY GEL 1.5 OZ TUBE TP SCH (10:05)
[2023-05-14] MEDS: Z GUARD REMEDY 4 OZ OINT TP SCH (10:05)
[2023-05-14] MEDS ORDERED: POTASSIUM CHLORIDE 20 MEQ POWDER PACKET GT ONE (10:30)
[2023-05-14] MEDS ORDERED: POTASSIUM CHLORIDE 20 MEQ TAB.PRT.SR PO ONE (11:00)
[2023-05-14 12:00] VITALS: BP 107/78; TEMP 98.1; O2SAT 93
[2023-05-14 16:00] VITALS: BP 98/62; TEMP 98.1; O2SAT 98
[2023-05-14] MEDS: ASPIRIN 81 MG TAB.CHEW GT SCH (17:58)
[2023-05-14 20:00] VITALS: BP 129/100; TEMP 98.1; O2SAT 98
[2023-05-14] MEDS: ATORVASTATIN 40 MG TABLET GT SCH (21:48)
[2023-05-14] MEDS: SENNOSIDES 8.6 MG TABLET GT SCH (21:50)
[2023-05-14 23:44] LABS: OCCULT BLOOD STOOL NEGATIVE (NEGATIVE)
[2023-05-15] VITALS: BP 133/80; TEMP 98.1; O2SAT 98
[2023-05-15] MEDS: VANCOMYCIN 500 MG in IV D5W 100ml IV SCH ×2 (01:11→13:59)
[2023-05-15] MEDS: ALBUTEROL FS 2.5 MG/3 ML VIAL.NEB NEB SCH ×4 (01:48→19:13)
[2023-05-15 04:00] VITALS: BP 103/67; TEMP 98.5; O2SAT 96
[2023-05-15] MEDS: MEROPENEM 500 MG in IV NS 0.9% 50 ML IV SCH ×3 (04:03→20:01)
[2023-05-15 06:13] LABS: CREATININE 0.2 mg/dL (0.6-1.3); POTASSIUM 4.1 mmol/L (3.5-5.1)
[2023-05-15 08:00] VITALS: BP 96/55; TEMP 97.8; O2SAT 100
[2023-05-15] MEDS: PANTOPRAZOLE 40 MG/PACK PACK GT SCH ×2 (09:00→17:09)
[2023-05-15] MEDS: SILDENAFIL CITRATE 20 MG TABLET PO SCH ×3 (09:00→17:09)
[2023-05-15] MEDS: PROSOURCE / PROSTAT (PYXIS) 30 ML UDC GT SCH (09:00)
[2023-05-15] MEDS: MIDODRINE HCL (5MG) 5 MG TABLET PO SCH ×4 (09:00→21:23)
[2023-05-15] MEDS: LIDOCAINE 5% (PATCH) 1 EA PATCH TP SCH (09:00)
[2023-05-15] MEDS: CHLORHEXIDINE GLUCONATE 15 ML UDC MM SCH ×2 (09:00→20:17)
[2023-05-15] MEDS: MAGNESIUM OXIDE 400 MG TABLET GT SCH ×3 (09:00→17:09)
[2023-05-15] MEDS: POLYETHYLENE GLYCOL 3350 17 GM POWD.PACK GT SCH (09:00)
[2023-05-15] MEDS: SIMETHICONE 80 MG TAB.CHEW GT SCH ×4 (09:00→20:17)
[2023-05-15] MEDS: DOCUSATE SODIUM LIQ 100 MG/10 ML UDC GT SCH ×2 (09:00→17:10)
[2023-05-15] MEDS: HYDROXYCHLOROQUINE 200 MG TABLET GT SCH (09:00)
[2023-05-15] MEDS: MAGNESIUM HYDROXIDE 30 ML UDC GT SCH ×3 (09:00→17:10)
[2023-05-15] MEDS: DAKINS QUARTER STRENGTH (0.125%) 480 ML BOTTLE TOP SCH (09:00)
[2023-05-15] MEDS: ARGININE/GLUTAMINE/CALCIUM BMB 1 EACH POWD.PACK GT SCH ×2 (09:00→17:10)
[2023-05-15] MEDS: CHOLECALCIFEROL 1,000 UNIT TABLET (VIT D3) GT SCH (09:00)
[2023-05-15] MEDS: THERAHONEY GEL 1.5 OZ TUBE TP SCH (09:43)
[2023-05-15] MEDS: Z GUARD REMEDY 4 OZ OINT TP SCH (09:43)
[2023-05-15] MEDS ORDERED: ERTA1VIA4 IJ (11:05)
[2023-05-15] MEDS ORDERED: VANC500F2 IV (11:05)
[2023-05-15 11:29] LABS: BASOPHILS # (AUTO) 0.1 K/uL (0.0-0.2); BASOPHILS % (AUTO) 0.7 % (0.0-2.0); EOSINOPHILS # (AUTO) 0.1 K/uL (0.0-0.7); EOSINOPHILS % (AUTO) 0.6 % (0.0-6.0); HEMATOCRIT 26 % (33-45); HEMOGLOBIN 8.4 g/dL (11.5-14.8); LYMPHOCYTES # (AUTO) 1.1 K/uL (0.8-4.8); LYMPHOCYTES % (AUTO) 11.6 % (20.0-44.0); MEAN CORPUSCULAR HEMOGLOBIN 29 PG (26.0-33.0); MEAN CORPUSCULAR HGB CONC 33 g/dl (31.0-36.0); MEAN CORPUSCULAR VOLUME 88 fL (82-100); MONOCYTES # (AUTO) 0.4 K/uL (0.1-1.30); MONOCYTES % (AUTO) 4.1 % (2.0-12.0); NEUTROPHILS # (AUTO) 7.9 K/uL (1.8-8.9); PLATELET COUNT (AUTO) 459 K/uL (150-450); RED BLOOD CELL COUNT(AUTO) 2.91 MIL/uL (4.0-5.2); RED CELL DISTRIBUTION WIDTH 16.9 % (11.5-15.0); WHITE BLOOD COUNT (AUTO) 9.6 K/uL (4.3-11.0)
[2023-05-15 12:00] VITALS: BP 88/68; TEMP 97.9; O2SAT 100
[2023-05-15] MEDS ORDERED: DEXTROSE 50%-WATER 50 ML DISP.SYRIN IVP ONE (14:30)
[2023-05-15] MEDS: IV D5/ 0.9% NACL 1,000 ML IV PRN (14:35)
[2023-05-15] MEDS ORDERED: JEVITY 1.2 CAL 1,000 ML BOTTLE GT PRN ×2 (15:52→17:30)
[2023-05-15 16:00] VITALS: BP 107/76; TEMP 98; O2SAT 100
[2023-05-15] MEDS: ASPIRIN 81 MG TAB.CHEW GT SCH (17:12)
[2023-05-15] MEDS: SENNOSIDES 8.6 MG TABLET GT SCH (21:24)
[2023-05-15] MEDS: ATORVASTATIN 40 MG TABLET GT SCH (21:24)
[2023-05-15 22:02] VITALS: BP 86/53; TEMP 97.8; O2SAT 100
[2023-05-16 00:15] VITALS: BP 98/63; TEMP 97.7; O2SAT 100
[2023-05-16] MEDS: VANCOMYCIN 500 MG in IV D5W 100ml IV SCH ×2 (00:55→12:30)
[2023-05-16] MEDS: ACETAMINOPHEN 650 MG/20.3 ML UDC GT PRN ×3 (00:55→15:50)
[2023-05-16] MEDS: LIDOCAINE 5% (PATCH) 1 EA PATCH TP SCH ×2 (01:09→01:10)
[2023-05-16] MEDS: ALBUTEROL FS 2.5 MG/3 ML VIAL.NEB NEB SCH ×4 (01:17→20:28)
[2023-05-16] MEDS: MEROPENEM 500 MG in IV NS 0.9% 50 ML IV SCH ×3 (03:45→20:39)
[2023-05-16 04:00] VITALS: BP 118/86; TEMP 97.5; O2SAT 100
[2023-05-16 05:43] LABS: BASOPHILS % (AUTO) 0.3 % (0.0-2.0); EOSINOPHILS % (AUTO) 0.3 % (0.0-6.0); HEMATOCRIT 25 % (33-45); HEMOGLOBIN 8.2 g/dL (11.5-14.8); LYMPHOCYTES # (AUTO) 0.8 K/uL (0.8-4.8); LYMPHOCYTES % (AUTO) 8.5 % (20.0-44.0); MEAN CORPUSCULAR HEMOGLOBIN 28 PG (26.0-33.0); MEAN CORPUSCULAR HGB CONC 33 g/dl (31.0-36.0); MEAN CORPUSCULAR VOLUME 87 fL (82-100); MONOCYTES # (AUTO) 0.5 K/uL (0.1-1.30); MONOCYTES % (AUTO) 4.9 % (2.0-12.0); PLATELET COUNT (AUTO) 442 K/uL (150-450); RED BLOOD CELL COUNT(AUTO) 2.89 MIL/uL (4.0-5.2); RED CELL DISTRIBUTION WIDTH 16.8 % (11.5-15.0); WHITE BLOOD COUNT (AUTO) 9.3 K/uL (4.3-11.0)
[2023-05-16 05:58] LABS: CALCIUM, SERUM 7.7 mg/dL (8.5-10.1); CREATININE 0.3 mg/dL (0.6-1.3); MAGNESIUM 1.7 mg/dL (1.8-2.4); PHOSPHORUS 2.9 mg/dL (2.5-4.9); POTASSIUM 3.4 mmol/L (3.5-5.1)
[2023-05-16 08:00] VITALS: BP 84/59; TEMP 97.9; O2SAT 100
[2023-05-16] MEDS: POLYETHYLENE GLYCOL 3350 17 GM POWD.PACK GT SCH (09:00)
[2023-05-16] MEDS: DOCUSATE SODIUM LIQ 100 MG/10 ML UDC GT SCH ×2 (09:00→16:09)
[2023-05-16] MEDS: MAGNESIUM HYDROXIDE 30 ML UDC GT SCH ×3 (09:00→16:09)
[2023-05-16] MEDS: DAKINS QUARTER STRENGTH (0.125%) 480 ML BOTTLE TOP SCH (09:01)
[2023-05-16] MEDS: THERAHONEY GEL 1.5 OZ TUBE TP SCH (09:01)
[2023-05-16] MEDS: CHLORHEXIDINE GLUCONATE 15 ML UDC MM SCH ×2 (09:01→21:18)
[2023-05-16] MEDS: Z GUARD REMEDY 4 OZ OINT TP SCH (09:01)
[2023-05-16] MEDS: ARGININE/GLUTAMINE/CALCIUM BMB 1 EACH POWD.PACK GT SCH ×2 (09:17→17:33)
[2023-05-16] MEDS: PROSOURCE / PROSTAT (PYXIS) 30 ML UDC GT SCH (09:17)
[2023-05-16] MEDS: CHOLECALCIFEROL 1,000 UNIT TABLET (VIT D3) GT SCH (09:18)
[2023-05-16] MEDS: SILDENAFIL CITRATE 20 MG TABLET PO SCH ×3 (09:18→17:31)
[2023-05-16] MEDS: MAGNESIUM OXIDE 400 MG TABLET GT SCH ×3 (09:18→17:31)
[2023-05-16] MEDS: SIMETHICONE 80 MG TAB.CHEW GT SCH ×4 (09:18→21:18)
[2023-05-16] MEDS: PANTOPRAZOLE 40 MG/PACK PACK GT SCH ×2 (09:18→17:32)
[2023-05-16] MEDS: HYDROXYCHLOROQUINE 200 MG TABLET GT SCH (09:18)
[2023-05-16] MEDS: MIDODRINE HCL (5MG) 5 MG TABLET PO SCH ×3 (09:19→17:32)
[2023-05-16] MEDS ORDERED: POTASSIUM CHLORIDE 20 MEQ POWDER PACKET GT ONE (09:30)
[2023-05-16] MEDS ORDERED: IV NS 0.9% 1,000 ML IV ONE (09:30)
[2023-05-16] MEDS: FLUCONAZOLE (100 MG) 100 MG TABLET PO SCH (09:45)
[2023-05-16 12:00] VITALS: BP 92/55; TEMP 97.7; O2SAT 95
[2023-05-16] MEDS ORDERED: MIDO5TAB4 PO (14:32)
[2023-05-16] MEDS ORDERED: FLUC100T8 PO (14:32)
[2023-05-16] MEDS: IV D5/ 0.9% NACL 1,000 ML IV PRN (15:48)
[2023-05-16 16:00] VITALS: BP 84/51; TEMP 97.7; O2SAT 96
[2023-05-16] MEDS: ASPIRIN 81 MG TAB.CHEW GT SCH (17:31)
[2023-05-16 20:00] VITALS: BP 75/48; TEMP 97.5; O2SAT 100
[2023-05-16] MEDS: SENNOSIDES 8.6 MG TABLET GT SCH (21:18)
[2023-05-16] MEDS: ATORVASTATIN 40 MG TABLET GT SCH (21:18)
[2023-05-17] VITALS: BP 94/63; TEMP 97.5; O2SAT 100
[2023-05-17] MEDS: VANCOMYCIN 500 MG in IV D5W 100ml IV SCH ×2 (01:39→13:46)
[2023-05-17] MEDS: ALBUTEROL FS 2.5 MG/3 ML VIAL.NEB NEB SCH ×3 (01:58→15:51)
[2023-05-17] MEDS: MEROPENEM 500 MG in IV NS 0.9% 50 ML IV SCH ×2 (03:56→12:16)
[2023-05-17 04:00] VITALS: BP 95/65; TEMP 98.8; O2SAT 100
[2023-05-17 05:55] LABS: BASOPHILS % (AUTO) 0.5 % (0.0-2.0); EOSINOPHILS % (AUTO) 0.3 % (0.0-6.0); HEMATOCRIT 24 % (33-45); HEMOGLOBIN 7.8 g/dL (11.5-14.8); LYMPHOCYTES # (AUTO) 0.6 K/uL (0.8-4.8); LYMPHOCYTES % (AUTO) 7.9 % (20.0-44.0); MEAN CORPUSCULAR HEMOGLOBIN 28 PG (26.0-33.0); MEAN CORPUSCULAR HGB CONC 32 g/dl (31.0-36.0); MEAN CORPUSCULAR VOLUME 86 fL (82-100); MONOCYTES # (AUTO) 0.5 K/uL (0.1-1.30); MONOCYTES % (AUTO) 6.9 % (2.0-12.0); NEUTROPHILS % (AUTO) 84.4 % (43.0-81.0); PLATELET COUNT (AUTO) 383 K/uL (150-450); RED CELL DISTRIBUTION WIDTH 16.5 % (11.5-15.0); WHITE BLOOD COUNT (AUTO) 7.1 K/uL (4.3-11.0)
[2023-05-17 06:10] LABS: CALCIUM, SERUM 7.5 mg/dL (8.5-10.1); CREATININE 0.3 mg/dL (0.6-1.3); MAGNESIUM 1.5 mg/dL (1.8-2.4); PHOSPHORUS 1.8 mg/dL (2.5-4.9); POTASSIUM 3.8 mmol/L (3.5-5.1)
[2023-05-17 08:00] VITALS: BP 103/72; TEMP 97.9; O2SAT 100
[2023-05-17] MEDS: PANTOPRAZOLE 40 MG/PACK PACK GT SCH ×2 (08:56→16:54)
[2023-05-17] MEDS: MAGNESIUM OXIDE 400 MG TABLET GT SCH ×3 (08:57→16:54)
[2023-05-17] MEDS: FLUCONAZOLE (100 MG) 100 MG TABLET PO SCH (08:58)
[2023-05-17] MEDS: SILDENAFIL CITRATE 20 MG TABLET PO SCH ×3 (08:58→16:55)
[2023-05-17] MEDS: MIDODRINE HCL (5MG) 5 MG TABLET PO SCH ×3 (08:58→16:55)
[2023-05-17] MEDS: CHOLECALCIFEROL 1,000 UNIT TABLET (VIT D3) GT SCH (08:59)
[2023-05-17] MEDS: DOCUSATE SODIUM LIQ 100 MG/10 ML UDC GT SCH (08:59)
[2023-05-17] MEDS: MAGNESIUM HYDROXIDE 30 ML UDC GT SCH ×2 (09:00→12:33)
[2023-05-17] MEDS: POLYETHYLENE GLYCOL 3350 17 GM POWD.PACK GT SCH (09:00)
[2023-05-17] MEDS: LIDOCAINE 5% (PATCH) 1 EA PATCH TP SCH (09:00)
[2023-05-17] MEDS: SIMETHICONE 80 MG TAB.CHEW GT SCH ×3 (09:01→16:54)
[2023-05-17] MEDS: CHLORHEXIDINE GLUCONATE 15 ML UDC MM SCH (09:01)
[2023-05-17] MEDS: PROSOURCE / PROSTAT (PYXIS) 30 ML UDC GT SCH (09:01)
[2023-05-17] MEDS: DAKINS QUARTER STRENGTH (0.125%) 480 ML BOTTLE TOP SCH (09:02)
[2023-05-17] MEDS: ARGININE/GLUTAMINE/CALCIUM BMB 1 EACH POWD.PACK GT SCH ×2 (09:02→16:56)
[2023-05-17] MEDS: Z GUARD REMEDY 4 OZ OINT TP SCH (09:03)
[2023-05-17] MEDS: THERAHONEY GEL 1.5 OZ TUBE TP SCH (09:04)
[2023-05-17] MEDS: HYDROXYCHLOROQUINE 200 MG TABLET GT SCH (09:06)
[2023-05-17 12:00] VITALS: BP 98/64; TEMP 98.2; O2SAT 100
[2023-05-17] MEDS: IV D5/ 0.9% NACL 1,000 ML IV PRN (12:19)
[2023-05-17] MEDS ORDERED: MAGNESIUM OXIDE 400 MG TABLET PO SCH (15:00)
[2023-05-17] MEDS ORDERED: K PHOS NEUTRAL 250 MG TABLET PO ONE (15:00)
[2023-05-17 16:00] VITALS: BP 103/67; TEMP 98.4; O2SAT 100
[2023-05-17 16:55] VITALS: BP 103/67
[2023-05-17] MEDS: ASPIRIN 81 MG TAB.CHEW GT SCH (17:01)
== END 2023-05-17 17:30 | DRG 853 ==
LOC: ER 13:38 → TELE-TD 20:51 → TELE1 05-07 10:04
PROVIDERS: ADMIT Internal Medicine; ATTEND Nurse Practitioner Acute Care
PROC: 5A1955Z Respiratory Ventilation, Greater than 96 Consecutive Hours (ICD-10-PCS; principal; 2023-05-06)
PROC: 30233N1 Transfusion of Nonautologous Red Blood Cells into Peripheral Vein, Percutaneous Approach (ICD-10-PCS; 2023-05-06)
PROC: 0QB10ZZ Excision of Sacrum, Open Approach (ICD-10-PCS; 2023-05-09)
PROC: 0QB10ZZ Excision of Sacrum, Open Approach (ICD-10-PCS; 2023-05-17)
DX: A41.9 Sepsis, unspecified organism (principal); E43 Unspecified severe protein-calorie malnutrition; L89.154 Pressure ulcer of sacral region, stage 4; K92.2 Gastrointestinal hemorrhage, unspecified; E22.2 Syndrome of inappropriate secretion of antidiuretic hormone; I73.01 Raynaud's syndrome with gangrene; J96.10 Chronic respiratory failure, unspecified whether with hypoxia or hypercapnia; M86.142 Other acute osteomyelitis, left hand; M86.141 Other acute osteomyelitis, right hand; Z99.11 Dependence on respirator [ventilator] status; R64 Cachexia; E11.52 Type 2 diabetes mellitus with diabetic peripheral angiopathy with gangrene; K56.7 Ileus, unspecified; I70.268 Atherosclerosis of native arteries of extremities with gangrene, other extremity; B37.49 Other urogenital candidiasis; M46.28 Osteomyelitis of vertebra, sacral and sacrococcygeal region; M32.9 Systemic lupus erythematosus, unspecified; N18.9 Chronic kidney disease, unspecified; I12.9 Hypertensive chronic kidney disease with stage 1 through stage 4 chronic kidney disease, or unspecified chronic kidney disease; E11.69 Type 2 diabetes mellitus with other specified complication; D63.1 Anemia in chronic kidney disease; E11.22 Type 2 diabetes mellitus with diabetic chronic kidney disease; E78.5 Hyperlipidemia, unspecified; I25.2 Old myocardial infarction; R13.10 Dysphagia, unspecified; K21.9 Gastro-esophageal reflux disease without esophagitis; Z87.19 Personal history of other diseases of the digestive system; Z79.51 Long term (current) use of inhaled steroids; Z79.899 Other long term (current) drug therapy; Z79.82 Long term (current) use of aspirin; L97.529 Non-pressure chronic ulcer of other part of left foot with unspecified severity; L97.519 Non-pressure chronic ulcer of other part of right foot with unspecified severity; E83.42 Hypomagnesemia; E83.39 Other disorders of phosphorus metabolism; E11.621 Type 2 diabetes mellitus with foot ulcer; E86.1 Hypovolemia; E88.09 Other disorders of plasma-protein metabolism, not elsewhere classified; G89.4 Chronic pain syndrome; I27.20 Pulmonary hypertension, unspecified; Z93.1 Gastrostomy status; Z93.0 Tracheostomy status; K62.3 Rectal prolapse; Z74.09 Other reduced mobility
CPT/HCPCS: 31720; 36415; 71045-TC; 80048-TC; 80053-TC; 80076-TC; 80202-TC; 82272-TC; 82947-TC; 82962-TC; 83605-TC; 83735-TC; 84100-TC; 84134-TC; 85025-TC; 85027-TC; 85730-TC; 86850-TC; 87040-TC; 87081-TC; 87086-TC; 94002-TC; 94003-TC; 94760-TC; 94762-TC; 94799-TC; A4223; A6253; A6403; A7526; C9113; G0378; J2185; J2270; J2405; J3370; J3475; J7030; J7040; J7042; J7050; J7060; P9016